=== PATIENT | female | born 1950 | race Caucasian/White ===

== ENCOUNTER → 2021-07-31 10:13 | Outpatient (BNVA) | payer OTHER, SELFPAY | PROVIDERS: PCP Internal Medicine; Visit Provider Internal Medicine | DX: J44.9 Chronic obstructive pulmonary disease, unspecified (principal); R68.89 Other general symptoms and signs; Z87.891 Personal history of nicotine dependence | CPT/HCPCS: 99202 ==

== ENCOUNTER 2021-09-27 13:19 | Outpatient (REF) | payer OTHER, SELFPAY ==
--- NOTE | ~2021-09-27 | CT_ITS ---
EXAMINATION: CT CHEST SCREENING CLINICAL INFORMATION: Former smoker. Quit 5 years ago. COMPARISON: None. TECHNIQUE: Multidetector volumetric CT imaging of the chest is performed without contrast using low dose technique. Additional 2D coronal and sagittal reformatted images and axial 3D maximum intensity projection (MIP) images are generated on the CT workstation. This CT examination was performed using dose optimization techniques as appropriate, variously including the following: *Automated exposure control *Adjustment of mA and/or kV according to patient size (this includes techniques or standardized protocols for targeted exams where dose is matched to indication/reason for exam; i.e. extremities or head) *Use of iterative reconstruction technique DLP: 293 mGy-cm FINDINGS: LUNGS: There is evidence of emphysema. There is a 2 mm right upper lobe posterior peripheral nodule axial image 131 series 5. There is linear scarring seen in the posterior segment of the right upper lobe and superior segment of the right lower lobe. There are several clustered peripheral posterior superior segment right lower lobe nodules measuring 4 mm axial image 248, 253 series 5. There are small peripheral or subpleural 2 mm nodules along the right minor fissure axial image 251 series 5. There is a 5 mm right lower lobe nodule axial image 386 series 6. There is a 5 mm left lower lobe nodule axial image 444 series 5. There is a 5 mm lingular nodule axial image 284 series 5 and scarring or subsegmental atelectasis seen in the inferior segment of the lingula. No endobronchial or endotracheal lesion. MEDIASTINUM: There is mild coronary artery calcification. There is atherosclerotic disease with calcification of the thoracic aorta. There is wall thickening of the mid and distal thoracic esophagus. The mediastinum is normal. PLEURA: There is no pleural effusion. No pleural mass or thickening. There is a small right posterior diaphragmatic hernia containing fat. AXILLA: No lymphadenopathy. UPPER ABDOMEN: There is a 1.5 cm low-attenuation lesion in the left kidney probably representing a cyst. OSSEOUS STRUCTURES: There are degenerative changes of the spine. CT/CT lung screening IMPRESSION: Emphysema. Small pulmonary nodules, largest measuring 5 mm. Wall thickening of the mid and distal thoracic esophagus. Follow-up barium swallow/upper GI or endoscopy should be considered. Mild coronary artery calcification and atherosclerotic disease. ASSESSMENT: Lung-RADS category 2S: Benign S for wall thickening of the esophagus. RECOMMENDATION: Annual low-dose chest CT follow-up recommended. Follow-up barium swallow/upper GI or endoscopy should be considered.
== END 2021-09-27 13:20 | disposition home or self-care (01) ==
LOC: HO.CT 13:19
PROVIDERS: PCP Internal Medicine; Visit Provider Physician Assistant Medical
DX: Z12.2 Encounter for screening for malignant neoplasm of respiratory organs (principal); F17.210 Nicotine dependence, cigarettes, uncomplicated
CPT/HCPCS: 71271; G0296

== ENCOUNTER 2021-11-23 09:45 | Outpatient (REF) | payer OTHER, SELFPAY ==
[2021-11-23 11:25] LABS: MANUAL DIFF FLAG NO
[2021-11-23 11:50] LABS: Basophils Absolute Auto 0.1 X10*3/uL (0.0-0.2); Basophils Percent Auto 0.7 % (0-2); Eosinophils Absolute Auto 0.7 X10*3/uL (0.0-0.4); Eosinophils Percent Auto 6.5 % (0-4); Hematocrit 42.1 % (37.0-47.0); Hemoglobin 13.6 g/dl (12.0-16.0); Imm Gran Abs Auto 0.02 X10*3/uL (0.00-0.03); Imm Gran Pct Auto 0.2 % (0.0-0.4); Lymphocytes Absolute Auto 2.1 X10*3/uL (1.2-4.9); Lymphocytes Percent Auto 20.2 % (20-40); Mean Corpuscular HGB Conc 32.3 g/dl (31.0-35.0); Mean Corpuscular Hemoglobin 30.4 pg (27.0-33.0); Mean Platelet Volume 11.6 fL (9.4-12.3); Monocytes Absolute Auto 0.6 X10*3/uL (0.1-1.2); Monocytes Percent Auto 5.5 % (2-11); Neutrophils Absolute Auto 6.9 x10*3/uL (2.0-8.3); Neutrophils Percent Auto 66.9 % (45-73); Platelet Count 228 X10*3/uL (160-400); Red Blood Count 4.48 X10*6/uL (4.20-5.50); Red Cell Distribution Width 12.7 % (11.0-16.0); White Blood Count 10.3 X10*3/uL (4.8-10.8)
[2021-11-23 11:58] LABS: Alanine Aminotransferase 18 U/L (0-31); Albumin Level 4.2 g/dL (3.5-5.0); Alkaline Phosphatase 118 U/L (39-117); Anion Gap 13 (12-20); Aspartate Amino Transferase 21 U/L (5-31); Bilirubin Total 1.2 mg/dL (0.0-1.0); Blood Urea Nitrogen 21 mg/dL (9-16); Calcium 9.4 mg/dL (8.4-10.2); Carbon Dioxide 30 mmol/L (22-29); Chloride 104 mmol/L (96-108); Cholesterol 181 mg/dL; Estimated Glomerular Filt Rate > 60; Glucose Fasting 118 mg/dL (60-99); HDL Cholesterol 40 mg/dL; LDL Cholesterol Calculated 101 mg/dl; Potassium 4.1 mmol/L (3.3-5.1); Sodium 143 mmol/L (135-145); Total Protein 7.1 g/dL (6.5-8.0); Triglycerides 203 mg/dL
[2021-11-23 12:20] LABS: TSH reflex Free T4 1.17 uIU/mL (0.32-4.0)
[2021-11-25 10:23] LABS: Vitamin B12 1396 pg/mL (200-900)
[2021-11-28 12:31] LABS: Vitamin D 25-OH, D2 <4 ng/mL; Vitamin D 25-OH, D3 48 ng/mL; Vitamin D 25-OH, Total 48 ng/mL (30-100)
== END 2021-11-23 09:46 | disposition home or self-care (01) ==
LOC: HO.HMGCLDS 09:45
PROVIDERS: PCP Internal Medicine; Visit Provider Internal Medicine
DX: I10 Essential (primary) hypertension (principal); J44.9 Chronic obstructive pulmonary disease, unspecified; R09.82 Postnasal drip; Z91.09 Other allergy status, other than to drugs and biological substances; Z76.89 Persons encountering health services in other specified circumstances
CPT/HCPCS: 36415; 80053; 80061; 82306; 82607; 84443; 85025

== ENCOUNTER 2021-12-05 08:55 | Outpatient (REF) | payer OTHER, SELFPAY ==
--- NOTE | 2021-12-05 11:22 | PFT_ITS ---
Forced vital capacity 57%, FEV1 23%, FEV1/FVC ratio is 31, [id number] 8% and MVV 19%. Post bronchodilator therapy, there is no change. Total lung capacity 98% and residual volume 150%, indicating some air trapping. Diffusion capacity is 19%. CONCLUSION: Very very severe obstructive airway disorder with evidence of air trapping. No response to bronchodilator therapy. MD MELISSA Hannah/MODL / [id number]
== END 2021-12-05 08:56 | disposition home or self-care (01) ==
LOC: HO.RESP 08:55
PROVIDERS: PCP Internal Medicine; Visit Provider Internal Medicine
DX: J44.9 Chronic obstructive pulmonary disease, unspecified (principal); R91.8 Other nonspecific abnormal finding of lung field; Z79.899 Other long term (current) drug therapy; Z87.891 Personal history of nicotine dependence; R68.89 Other general symptoms and signs
CPT/HCPCS: 99212

== ENCOUNTER 2022-02-04 09:50 | Outpatient (REF) | payer OTHER, SELFPAY ==
[2022-02-04 11:50] LABS: Estimated Average Glucose 108 mg/dL; Hemoglobin A1c % 5.4 %
[2022-02-04 12:12] LABS: Alanine Aminotransferase 15 U/L (0-31); Alkaline Phosphatase 98 U/L (39-117); Anion Gap 15 (12-20); Aspartate Amino Transferase 19 U/L (5-31); Bilirubin Total 0.9 mg/dL (0.0-1.0); Blood Urea Nitrogen 21 mg/dL (9-16); Calcium 9.4 mg/dL (8.4-10.2); Carbon Dioxide 28 mmol/L (22-29); Chloride 103 mmol/L (96-108); Estimated Glomerular Filt Rate > 60; Glucose Random 108 mg/dL (60-115); Sodium 142 mmol/L (135-145); Total Protein 6.8 g/dL (6.5-8.0)
== END 2022-02-04 09:51 | disposition home or self-care (01) ==
LOC: HO.HMGCLDS 09:50
PROVIDERS: PCP Internal Medicine; Visit Provider Internal Medicine
DX: R73.01 Impaired fasting glucose (principal); R79.89 Other specified abnormal findings of blood chemistry
CPT/HCPCS: 36415; 80053; 83036

== ENCOUNTER → 2022-04-17 09:46 | Outpatient (BNVA) | payer OTHER, SELFPAY | PROVIDERS: PCP Internal Medicine; Visit Provider Internal Medicine | DX: J44.9 Chronic obstructive pulmonary disease, unspecified (principal); R91.8 Other nonspecific abnormal finding of lung field; Z87.891 Personal history of nicotine dependence | CPT/HCPCS: 99212 ==

== ENCOUNTER 2022-09-18 09:02 | Outpatient (REF) | payer OTHER, SELFPAY ==
[2022-09-18 11:33] LABS: MANUAL DIFF FLAG NO
[2022-09-18 11:46] LABS: Basophils Absolute Auto 0.1 X10*3/uL (0.0-0.2); Basophils Percent Auto 0.7 % (0-2); Eosinophils Absolute Auto 0.2 X10*3/uL (0.0-0.4); Eosinophils Percent Auto 1.9 % (0-4); Hematocrit 41.5 % (37.0-47.0); Hemoglobin 13.4 g/dl (12.0-16.0); Imm Gran Abs Auto 0.12 X10*3/uL (0.00-0.03); Imm Gran Pct Auto 1.1 % (0.0-0.4); Lymphocytes Absolute Auto 1.7 X10*3/uL (1.2-4.9); Lymphocytes Percent Auto 16.6 % (20-40); Mean Corpuscular HGB Conc 32.3 g/dl (31.0-35.0); Mean Corpuscular Hemoglobin 31.5 pg (27.0-33.0); Mean Corpuscular Volume 97.4 fL (80.0-98.0); Mean Platelet Volume 11.5 fL (9.4-12.3); Monocytes Absolute Auto 0.5 X10*3/uL (0.1-1.2); Neutrophils Absolute Auto 7.8 x10*3/uL (2.0-8.3); Neutrophils Percent Auto 74.7 % (45-73); Platelet Count 234 X10*3/uL (160-400); Red Blood Count 4.26 X10*6/uL (4.20-5.50); Red Cell Distribution Width 12.9 % (11.0-16.0); White Blood Count 10.5 X10*3/uL (4.8-10.8)
[2022-09-18 12:17] LABS: Alanine Aminotransferase 21 U/L (0-31); Alkaline Phosphatase 107 U/L (39-117); Anion Gap 14 (12-20); Aspartate Amino Transferase 24 U/L (5-31); Bilirubin Total 1.1 mg/dL (0.0-1.0); Blood Urea Nitrogen 17 mg/dL (9-16); Calcium 9.9 mg/dL (8.4-10.2); Carbon Dioxide 30 mmol/L (22-29); Chloride 105 mmol/L (96-108); Cholesterol 188 mg/dL; Estimated Glomerular Filt Rate > 60; Glucose Fasting 112 mg/dL (60-99); Glucose Random 110 mg/dL (60-115); HDL Cholesterol 41 mg/dL; LDL Cholesterol Calculated 111 mg/dl; Potassium 4.3 mmol/L (3.3-5.1); Sodium 145 mmol/L (135-145); Total Protein 6.8 g/dL (6.5-8.0); Triglycerides 184 mg/dL
== END 2022-09-18 09:03 | disposition home or self-care (01) ==
LOC: HO.HMGCLDS 09:02
PROVIDERS: PCP Internal Medicine; Visit Provider Internal Medicine
DX: I10 Essential (primary) hypertension (principal); R73.01 Impaired fasting glucose; R79.89 Other specified abnormal findings of blood chemistry
CPT/HCPCS: 36415; 80053; 80061; 85025

== ENCOUNTER 2022-10-23 10:10 | Outpatient (REF) | payer OTHER, SELFPAY ==
--- NOTE | ~2022-10-23 | CT_ITS ---
EXAMINATION: CT CHEST SCREENING CLINICAL INFORMATION: Personal history of nicotine dependence. COMPARISON: CT chest 09/27/2021. TECHNIQUE: Multidetector volumetric CT imaging of the chest is performed without contrast using low dose technique. Additional 2D coronal and sagittal reformatted images and axial 3D maximum intensity projection (MIP) images are generated on the CT workstation. This CT examination was performed using dose optimization techniques as appropriate, variously including the following: *Automated exposure control *Adjustment of mA and/or kV according to patient size (this includes techniques or standardized protocols for targeted exams where dose is matched to indication/reason for exam; i.e. extremities or head) *Use of iterative reconstruction technique DLP: 52 mGy-cm FINDINGS: LUNGS: There is centrilobular emphysema without acute consolidation. There are new right upper lobe pulmonary nodules measuring 5 mm right upper lobe image 132/6 and image 140/6. 2 mm nodule seen previously subpleural location right upper lobe is not seen at this time. Focal scarring is seen right upper lobe posterior segment adjacent to major fissure. Small clustered 4 mm nodules in the superior segment of right lower lobe axial image 200/6 and 201/6 appear stable. 2 mm clustered nodules along the right minor fissure are stable on axial image 213/6 and 214/6. 4 mm nodule left lower lobe axial image 188/6 appears more obvious compared to previous study. There is new linear atelectasis. 3 mm nodules right middle lobe axial image 270/6 and a 2 mm nodule right middle lobe axial image 271/6 is stable. No lingular nodules seen at this time. Left lower lobe 5 mm nodule axial image 409/6 is stable. MEDIASTINUM: Thyroid lobes are symmetric and normal. The central trachea and the bronchi are widely patent. Heart size and the great vessels are normal caliber. Small shotty lymph nodes are seen in the precarinal space. No pericardial effusion seen. There is mild thickening of distal esophageal wall similar to previous study. CORONARY ARTERY CALCIFICATION: Mild coronary artery calcifications are present. PLEURA: There is no pleural effusion. No pleural mass or lymphadenopathy. AXILLA: Unremarkable. UPPER ABDOMEN: Unremarkable. OSSEOUS STRUCTURES: Unremarkable. CT/CT lung screening IMPRESSION: Majority pulmonary nodules are stable. There are some nodules that have resolved and are not visualized and some new nodules in the right middle lobe and right upper lobe. ASSESSMENT: Lung-RADS category 2S RECOMMENDATION: Low-dose annual CT chest.
== END 2022-10-23 10:11 | disposition home or self-care (01) ==
LOC: HO.CT 10:10
PROVIDERS: PCP Internal Medicine; Visit Provider Physician Assistant Medical
DX: Z12.2 Encounter for screening for malignant neoplasm of respiratory organs (principal); Z87.891 Personal history of nicotine dependence
CPT/HCPCS: 71271

== ENCOUNTER → 2022-11-20 09:50 | Outpatient (REF) | payer OTHER, SELFPAY ==
--- NOTE | 2022-11-20 09:52 | CA_ITS ---
Transthoracic Echocardiogram Patient (Last, First, Middle): Charissa Baptiste, Gender: Female Date of : 1950 Age: 72 Procedure Date: 11/20/2022 Procedure Type: Transthoracic Echocardiogram Location: OP Height: 160.02 cm Weight: 70.31 kg BSA: 1.74 m2 Heart Rate: bpm BP: 144 / 72 mmHg Frame Sample And Pattern Supervisor: TO Referring MD: Keny Alves MD Lithographic Photographer Apprentice: Pawel Fuentes MD Symptoms: R06.02 - Shortness of breath Study Quality: Technically Difficult, contrast ECG Rhythm: Sinus Conclusions: - 1. Technically limited study despite use of contrast agent 2. Normal LV systolic function with LVEF of 55-60% with suggestion of underlying regional wall motion abnormality consistent with coronary artery disease 3. Mild mitral regurgitation 4. No gross pericardial effusion Findings Procedure Information Contrast agent, definity, is being given per protocol with complications as noted. The patient experienced back pain from contrast. Left Ventricle Normal left ventricular size, thickness, and systolic function. The visually estimated ejection fraction is between 55-60%. Spectral Doppler is indicative of an impaired relaxation filling pattern. There is moderate septal asymmetric hypertrophy. Wall Motion Rest Echo Findings The basal inferior and basal inferoseptal segments are akinetic. The mid inferoseptal segment is dyskinetic. All other scored wall segments showed normal motion. Right Ventricle The right ventricle was not well visualized. There is normal right ventricular systolic function. Atria The left atrium was not well visualized. There is no evidence of interatrial shunt. The right atrium was not well visualized. Aortic Valve The aortic valve was not well visualized. There is no aortic valve stenosis. There is no aortic valve regurgitation. Mitral Valve There is mild anterior mitral leaflet thickening. There is mild mitral annular calcification. There is mild mitral valve regurgitation. There is no mitral valve stenosis. Pulmonic Valve The pulmonic valve was not well visualized. Tricuspid Valve The tricuspid valve was not well visualized. Tricuspid regurgitation envelope is inadequate for calculation of right ventricular systolic pressure. Normal right atrial pressure. Great Vessels All visible segments of the aorta are normal in size. The pulmonary artery was not well visualized. Venous The inferior vena cava is normal in size and collapses greater than 50% with inspiration. Pericardium/Pleural There is no evidence of pericardial effusion. Prior Study Comparison No prior study available for comparison. Measurements 2D Linear Measurements IVSd: 1.59 0.6-0.9/0.6-1.0 cm LVIDd: 3.56 3.9-5.3/4.2-5.9 cm LVIDd Index: 2.05 2.4-3.2/2.2-3.1 cm/m2 LVIDs: 2.10 2.0-3.6 cm LVPWd: 0.98 0.7-1.1 cm LA Diam: 3.00 2.7-3.8/3.0-4.0 cm LAIDs Index: 1.72 1.5-2.3 cm/m2 LV Mass: 192.52 67-162/88-224 g LV Mass Index: 110.64 43-95/49-115 g/m2 LVOT Diam: 1.90 3.0+(-)1.3 cm Mitral Valve MV VTI: 0.38 MV Pk Demarcus: 1.03 MV Mn Demarcus: 0.68 MV Pk Grad: 4.00 MV Mn Grad: 2.00 MV Pk E: 0.73 MV PK A: 0.87 MV Decel Time: 215.00 E/A: 0.80 E'Lateral: 6.20 E'Medial: 5.87 E/E' Med: 12.50 E/E' Lat: 11.80 PHT: 63.00 MVA PHT: 3.49 MVA Continuity: 1.71 Decel Mono: 3.40 Aortic Valve AoV Pk Demarcus: 1.38 AoV Mn Demarcus: 0.92 AoV VTI: 0.31 AoV Pk Grad: 8.00 Aov Mn Grad: 4.00 KO Cont.VTI: 2.09 LVOT LVOT Pk Demarcus: 0.96 LVOT Mn Demarcus: 0.64 LVOT VTI: 0.23 LVOT Pk Grad: 4.00 LVOT Mn Grad: 2.00 LVOT Diam: 1.90 LVOT Area: 2.84 Diastolic Function MV Pk E: 0.73 MV Pk A: 0.87 E/A: 0.80 E'Medial: 5.87 E/E' Med: 12.50 E' Laterial: 6.20 E/E' Lat: 11.80 Right Ventricle TAPSE (mm): 2.11 TVS' Demarcus: 8.59 Tricuspid Valve TR Pk Demarcus: 2.15 TR Pk Grad: 18.00 Great Vessels Aorta Sinus of Valsalva: 2.83 2.0-3.[address] [place]: 2.23 1.7-3.4 cm Ao Asc: 2.70 2.1-3.4 cm Updated in Other Vendor System with Status of Final Pawel Fuentes MD electronically signed on 11/20/2022 4:37:21 PM with status of Final
--- NOTE | 2022-11-20 09:52 | ECG_ITS ---
Test Reason : SOB Blood Pressure : / mmHG Vent. Rate : 069 BPM Atrial Rate : 069 BPM P-R Int : 140 ms QRS Dur : 080 ms QT Int : 356 ms P-R-T Axes : 072 079 078 degrees QTc Int : 381 ms Normal sinus rhythm with sinus arrhythmia Nonspecific T wave abnormality Abnormal ECG No previous ECGs available Referred By: Keny Alves Electronically Signed By:Lui Bailon
== END ==
LOC: HO.CARD 09:50
PROVIDERS: PCP Internal Medicine; Visit Provider Internal Medicine
DX: R06.02 Shortness of breath (principal); I10 Essential (primary) hypertension
CPT/HCPCS: 93005; 93306; Q9957

== ENCOUNTER 2022-12-26 07:28 | Outpatient (AMB) | payer OTHER, SELFPAY ==
--- NOTE | 2022-12-26 07:26 | MHC.PC.OV ---
Intake Visit Reasons: discuss Echo report [id number] Allergies perflutren Adverse Reaction (Verified 12/26/22 07:27) Back Pain Medication List - Last Reconciled 12/26/22 by Keny Alves MD albuterol sulfate 90 mcg/actuation 2 puffs PO Q4-6H PRN atenolol 75 mg (1.5 x 50 mg) PO DAILY 90 days cholecalciferol (vitamin D3) 50 mcg PO DAILY qlanoxaqvgq-ledyqxnud-mkrnerld 100-62.5-25 mcg (Trelegy Ellipta) 1 inh inhalation DAILY 30 days ibuprofen mg PO rceiidti-bmm-qjhj-FA-lutein 8 mg iron-400 mcg-300 mcg (Centrum Silver Women) 1 tab PO DAILY Tobacco use date assessed: 12/26/22 Fall risk assessment: No Falls in past year Last assessed Fall Risk: 12/26/22 Dental Screening Dental Screen Date: 12/26/22 Did you have a dental visit in the last 12 months?: Yes Did you have a dental problem in the last 6 months where you did not have access to dental care?: Yes Was dental information given to patient?: Patient has dentist HPI discuss Echo report [phone] HPI Details Patient is 72-year-old female this is a tele medicine visit to go over her testing results 10/23/22 IMPRESSION: Majority pulmonary nodules are stable. There are some nodules that have resolved and are not visualized and some new nodules in the right middle lobe and right upper lobe. 11/20/22 Conclusions: - 1. Technically limited study despite use of contrast agent 2. Normal LV systolic function with LVEF of 55-60% with suggestion of underlying regional wall motion abnormality consistent with coronary artery disease 3. Mild mitral regurgitation 4. No gross pericardial effusion Explained the CT scan and echocardiogram reports to the patient she has appointment with cost analyst 13 of February and appointment with paralegal specialist on January 22 that she is already seeing At this time patient have no complain she is taking her medication regularly having no side effects. [facility] Medical History COPD, severe Esophageal thickening Hypertension, essential Personal history of nicotine dependence Pulmonary nodules/lesions, multiple Worsening functional endurance Family History Mother COPD (chronic obstructive pulmonary disease) Other Substance use disorder Social History Housing: Apartment Alcohol intake: current Alcohol intake frequency: does not drink Patient Tobacco Use Status: Former Tobacco user (5 years ago ) Quit Date: 2014 Tobacco use type: Cigarette Years Smoked: (onset 14yo, 1ppd x 50yrs, 50pyh - quit ~2014) e-Cigarette/Vaping Use: Never Used service: No Current occupational status: retired Cognitive needs: No Hearing needs: No Vision needs: Yes Questionnaire PHQ-9 Over the last 2 weeks, how often have you been bothered by any of the following problems? 1. Little interest or pleasure in doing things: not at all 2. Feeling down, depressed, or hopeless: not at all 3. Trouble falling or staying asleep, or sleeping too much: not at all 4. Feeling tired or having little energy: not at all 5. Poor appetite or overeating: not at all 6. Feeling bad about yourself - or that you are a failure or have let yourself or your family down: not at all 7. Trouble concentrating on things, such as reading the newspaper or watching television: not at all 8. Moving or speaking so slowly that other people could have noticed. Or the opposite - being so fidgety or restless that you have been moving around a lot more than usual: not at all 9. Thoughts that you would be better off or of hurting yourself in some way: not at all Total score: 0 Source: Developed by Drs. Dereje Alvarado, Tania Baptiste, Junior Espinoza and colleagues, with an educational susie from [employer]. Thrive Questionnaire Date Thrive assessed: 12/26/22 I am a: Patient What is your living situation today?: I have a steady place to live Within the past 12 months, did the food you bought not last and you didn't have the money to get more?: Never true Within the past 12 months, did you worry whether your food would run out before you got money to buy more?: Never true Do you have trouble paying for medicines?: No Do you have trouble getting transportation to medical appointments?: No Do you have trouble paying your heating and electricity bill?: No Do you have trouble taking care of your child, family member or friend?: No Do you have trouble with day-to-day activities such as bathing, preparing meals, shopping, managing finances, etc.?: No Are you currently unemployed and looking for a job?: No Are you interested in more education?: No AUDIT C Alcohol Use Questionnaire (AUDIT-C) 1. How often do you have a drink containing alcohol?: Never Total Score: 0 DONALD-7 AMB Questionnaire DONALD-7 Date DONALD - 7 assessed: 12/26/22 Feeling nervous, anxious, or on edge: 0 = Not at all Not being able to stop or control worryin = Not at all Worrying too much about different things: 0 = Not at all Trouble relaxin = Not at all Being so restless that it is hard to sit still: 0 = Not at all Becoming easily annoyed or irritable: 0 = Not at all Feeling afraid as if something awful might happen: 0 = Not at all Total DONALD-7 score (0-4 normal; 5-9 mild; 10-14 moderate; 15-21 severe): 0 Source: Developed by Drs. Dereje Alvarado, Tania Baptiste, Junior Espinoza and colleagues, with an educational susie from [employer]. Review of Systems Const Denies chills, Denies fever(s) and Denies headache(s) Eyes Denies blurry vision ENT Denies headache(s), Denies nasal discharge, Denies nasal obstruction, Denies odynophagia and Denies sinus pain Card Denies chest pain at rest and Denies chest pain with activity Resp Denies cough and Denies hemoptysis GI Denies diarrhea, Denies odynophagia, Denies vomiting and Denies hematemesis Reports as per HPI Musc Denies abnormal gait Skin/Breast Reports as per HPI Neuro Denies Neuro-related abnormal movements, Denies Abnormal speech present, Denies abnormal gait, Denies headache(s) and Denies Sensory deficit (Neuro) Psych Denies mood swings and Denies paranoia Endo Reports as per HPI Rian/Lymph Reports as per HPI Aller/Immun Reports as per HPI Physical exam (Primary Care) Tobacco/Smoking Status: Tobacco use Status Tobacco use date assessed 07/14/23 07/14/23 07:28 Patient Tobacco Use Status Former Tobacco user (5 years 12/26/22 07:28 ago ) Tobacco use type Cigarette 12/26/22 07:28 e-Cigarette/Vaping Use Never Used 12/26/22 07:28 PHQ-9: PHQ-9 Score PHQ-9: Total score 0 12/26/22 07:30 Thrive Assessment: Date of Thrive Assessment Date Thrive assessed 12/26/22 12/26/22 07:30 Neuro Speech: No Abnormal speech present Sensory Exam: No Sensory deficit (Neuro) Telehealth Telehealth Location of provider rendering services: practice address Location of patient: address on file Patient Identification confirmed using: Name, : Yes Telehealth method: voice only Patient verbally consented to treatment: Yes Patient verbally consented to billing insurance company: Yes Patient informed of any privacy concerns related to visit: Yes Minutes spent on Phone/Video with Pt.: 14 Assessment and Plan Assessment & Plan (1) CAD (coronary artery disease): Code(s): I25.10 - Atherosclerotic heart disease of [place] coronary artery without angina pectoris (2) COPD, severe: Comment: COPD IS ACTUALLY VERY SEVERE, FORTUNATELY SHE IS STAYING VERY STABLE. TX: TRELEGY ELLIPTA 1 INHALATION DAILY ALBUTEROL HFA 2 PUFFS Q 4-6 HOURS ONLY P.R.N. PATIENT IS UP TO DATE WITH HER VACCINATIONS. Code(s): J44.9 - Chronic obstructive pulmonary disease, unspecified (3) Hypertension, essential: Code(s): I10 - Essential (primary) hypertension Plan Patient is 72-year-old female this is a tele medicine visit to go over her testing results 10/23/22 IMPRESSION: Majority pulmonary nodules are stable. There are some nodules that have resolved and are not visualized and some new nodules in the right middle lobe and right upper lobe. 11/20/22 Conclusions: - 1. Technically limited study despite use of contrast agent 2. Normal LV systolic function with LVEF of 55-60% with suggestion of underlying regional wall motion abnormality consistent with coronary artery disease 3. Mild mitral regurgitation 4. No gross pericardial effusion Explained the CT scan and echocardiogram reports to the patient she has appointment with cost analyst 13 of February and appointment with paralegal specialist on January 22 that she is already seeing At this time patient have no complain she is taking her medication regularly having no side effects. Coding Level of Care Code Tele Est Pt Level 3 (08501) Diagnoses CAD (coronary artery disease) I25.10 COPD, severe J44.9 Hypertension, essential I10
== END 2022-12-26 08:41 | disposition home or self-care (01) ==
PROVIDERS: PCP Internal Medicine; Visit Provider Internal Medicine
DX: I25.10 Atherosclerotic heart disease of native coronary artery without angina pectoris (principal); J44.9 Chronic obstructive pulmonary disease, unspecified; I10 Essential (primary) hypertension
CPT/HCPCS: 99213

== ENCOUNTER 2023-01-22 10:20 | Outpatient (AMB) | payer OTHER, SELFPAY ==
--- NOTE | 2023-01-22 10:22 | MHC.OFFVIS ---
Intake Vital Signs 01/22/23 10:23 Height 5 ft 3 in Weight 159 lb 13.362 oz BMI 28.3 BP 124/68 Blood Pressure Location Lt brachial Position Sitting Pulse 75 Pulse Source Pulse Oximeter Pulse Oximetry (%) 94 Oxygen Delivery Method Room Air Intake Visit Reasons: copd Intake Note: Pt presents today for a f/u. She reports having shortness of breath on exertion. Oxygen levels were at 86 but kaity up to 94 after sitting for a while and catching her breath. She is also looking to get some prescriptions refilled. Content Creation Manager Required: No Allergies perflutren Adverse Reaction (Verified 01/22/23 10:55) Back Pain Medication List - Last Reconciled 01/22/23 by Ed Barfield MD albuterol sulfate 90 mcg/actuation 2 puffs PO Q4-6H PRN atenolol 75 mg (1.5 x 50 mg) PO DAILY 90 days cholecalciferol (vitamin D3) 50 mcg PO DAILY aaumykenclp-ivqwqlchz-ubhdrvii 100-62.5-25 mcg (Trelegy Ellipta) 1 inh inhalation DAILY 30 days ibuprofen mg PO rkxkjtaz-phj-iwnm-FA-vit K-lut 8 mg iron-400 mcg-50 mcg (Centrum Silver Women) 1 tab PO DAILY Do you need a note to return to daycare/school/sports/work: No HPI copd HPI Details THIS 72 YEARS OLD VERY PLEASANT FEMALE IS A CASE OF SEVERE OBSTRUCTIVE AIRWAY DISORDER. SHE HAS PAST HISTORY OF SMOKING. PATIENT FEELING MUCH BETTER SINCE SHE IS ON TRELEGY 1 INHALATION DAILY AND ALBUTEROL WHICH SHE USES ONLY ONCE IN A WHILE. SHE DOES GET SHORT OF BREATH WHEN SHE WALKS ON THE LEVEL GROUND, IN A HURRY, OR IF SHE CLIMBS 1 FLIGHT OF STAIRS. SHE CLAIMS THAT FOR THE LAST 1 YEAR SHE DID NOT EVEN HAVE ANY SINUS INFECTION WHICH SHE USED TO GET REGULARLY BEFORE. SHE CAN WALK MORE AND SHE CAN DO HER HOUSEHOLD WORK WITHOUT ANY DISTRESS. SHE DOES GET ANNUAL LUNG SCAN , LAST 1 WAS THIS YEAR IN OCTOBER WHICH SHOWS MULTIPLE PULMONARY NODULES BUT VERY STABLE. [facility] Medical History COPD, severe Esophageal thickening Hypertension, essential Personal history of nicotine dependence Pulmonary nodules/lesions, multiple Worsening functional endurance Family History Mother COPD (chronic obstructive pulmonary disease) Other Substance use disorder Social History Housing: Apartment Alcohol intake: current Alcohol intake frequency: does not drink Patient Tobacco Use Status: Former Tobacco user (5 years ago ) Quit Date: 2014 Tobacco use type: Cigarette Years Smoked: (onset 14yo, 1ppd x 50yrs, 50pyh - quit ~2014) e-Cigarette/Vaping Use: Never Used service: No Current occupational status: retired Cognitive needs: No Hearing needs: No Vision needs: Yes Review of Systems Const All systems reviewed & are unremarkable except as noted in HPI and below Eyes Reports no additional complaints ENT Reports no additional complaints Card Denies chest pain, Denies irregular heart rhythm, Reports leg edema and Reports dyspnea on exertion Resp Reports as per HPI and Reports dyspnea on exertion GI Reports no additional complaints Reports no additional complaints Musc Reports muscle weakness (GENERAL BODY WEAKNESS AND POOR ENDURANCE) Skin/Breast Reports system reviewed and no additional complaints, except as documented Neuro Reports no additional complaints Psych Reports anxiety (MILD) Endo Reports no additional complaints Rian/Lymph Reports no additional complaints Aller/Immun Reports no additional complaints Physical Exam Vital Signs: Last Vital Signs Pulse 75 01/22/23 10:23 BP 124/68 01/22/23 10:23 Pulse Ox 94 01/22/23 10:23 Oxygen Delivery Method Room Air 01/22/23 10:23 BMI result Body Mass Index 28.3 Const General: comfortable (BUT OBVIOUSLY SHORT OF BREATH ON WALKING EVEN IN THE EXAM ROOM), no acute distress, alert and awake Orientation/consciousness: patient oriented x3 HEENT Head: Yes normal to inspection General nose exam: No nasal polyps present and No nasal discharge present Face and sinus: Yes sinuses nontender Mouth: oropharynx normal Throat: Yes posterior oropharynx normal Eyes General: appearance normal, both eyes and all related structures Neck Neck: Yes normal visual inspection, Yes no lymphadenopathy, Yes trachea midline and Yes no JVD Thyroid: Thyroid normal Chest Chest palpation & inspection: normal inspection of the chest, normal palpation of entire chest wall and no tenderness Resp Other: PERCUSSION NOTE RESONANT. BREATH SOUNDS ARE VERY DISTANT WITH PROLONGED EXPIRATORY PHASE. NO AUDIBLE WHEEZES CREPS OR RHONCHI. Cardio Palpation: normal PMI Rate: regular rate Rhythm: regular rhythm Heart sounds: no gallops and no murmurs GI Palpation (GI): Soft to palpation, nontender, No hepatosplenomegaly present and no masses Auscultation: normal bowel sounds Back/Spine/Pelvis Thoracic/Lumbar Spine: thoracic and lumbar spine normal to inspection Skin General skin exam: no rashes or lesions noted Neuro General: patient oriented x3 and no focal motor deficits Cranial nerves: Yes CN's II-XII intact bilaterally Extrem General: Yes normal to inspection, Yes no clubbing, cyanosis or edema and Yes no calf tenderness Psych Appearance: grossly normal Speech and movement: Normal speech and movement present Results Reviewed Results Reviewed: I REVIEWED THE RESULTS OF HER LOW-DOSE CT SCAN, IN OCTOBER OF THIS YEAR AND EXPLAINED TO HER. Assessment & Plan Assessment & Plan (1) COPD, severe: Comment: COPD IS ACTUALLY VERY SEVERE, FORTUNATELY SHE IS STAYING VERY STABLE. TX: TRELEGY ELLIPTA 1 INHALATION DAILY ALBUTEROL HFA 2 PUFFS Q 4-6 HOURS ONLY P.R.N. SCRIPTS ARE RENEWED. PATIENT IS UP TO DATE WITH HER VACCINATIONS. Code(s): J44.9 - Chronic obstructive pulmonary disease, unspecified (2) Personal history of nicotine dependence: Comment: (Former smoker, onset 14, 1ppd x 50yrs, quit ~2014) Code(s): Z87.891 - Personal history of nicotine dependence (3) Pulmonary nodules/lesions, multiple: Comment: Patient had LDCT scan in September, has small bilateral pulmonary nodules, benign, stage II. She will be getting Annual low-dose CT scan , for lung screening. Code(s): R91.8 - Other nonspecific abnormal finding of lung field Coding Level of Care Code Est Pt Level 3 (90511) Diagnoses COPD, severe J44.9 Personal history of nicotine dependence Z87.891 Pulmonary nodules/lesions, multiple R91.8
[2023-01-22 10:23] VITALS: BP 124/68; PULSE 75; O2SAT 94; BMI 28.3
== END 2023-01-22 10:53 | disposition home or self-care (01) ==
PROVIDERS: PCP Internal Medicine; Visit Provider Internal Medicine
DX: J44.9 Chronic obstructive pulmonary disease, unspecified (principal); Z87.891 Personal history of nicotine dependence; R91.8 Other nonspecific abnormal finding of lung field
CPT/HCPCS: 99213

== ENCOUNTER → 2023-01-22 10:20 | Outpatient (BNVA) | payer OTHER, SELFPAY | PROVIDERS: PCP Internal Medicine; Visit Provider Internal Medicine | DX: J44.9 Chronic obstructive pulmonary disease, unspecified (principal); R91.8 Other nonspecific abnormal finding of lung field; Z87.891 Personal history of nicotine dependence | CPT/HCPCS: 99212 ==

== ENCOUNTER 2023-02-11 10:27 | Outpatient (AMB) | payer OTHER, SELFPAY ==
--- NOTE | 2023-02-11 10:28 | MHC.PC.OV ---
Vital Signs 02/11/23 10:31 Height 5 ft 3 in Weight 155 lb BMI 27.5 BP 130/84 Blood Pressure Location Lt brachial Position Sitting Pulse 78 Pulse Source Pulse Oximeter Pulse Oximetry (%) 94 Oxygen Delivery Method Room Air Intake Visit Reasons: Physical exam - Due for colorectal cancer screen Allergies perflutren Adverse Reaction (Verified 02/11/23 10:31) Back Pain Medication List - Last Reconciled 02/11/23 by Keny Alves MD albuterol sulfate 90 mcg/actuation 2 puffs PO Q4-6H PRN 30 days atenolol 75 mg (1.5 x 50 mg) PO DAILY 90 days cholecalciferol (vitamin D3) 50 mcg PO DAILY tmsopqafcpx-suasyqazr-sojmprmp 100-62.5-25 mcg (Trelegy Ellipta) 1 inh inhalation DAILY 30 days ibuprofen mg PO pxiwepxd-hln-kesx-FA-vit K-lut 8 mg iron-400 mcg-50 mcg (Centrum Silver Women) 1 tab PO DAILY Tobacco use date assessed: 12/26/22 Fall risk assessment: No Falls in past year Last assessed Fall Risk: 02/11/23 Dental Screening Dental Screen Date: 02/11/23 Did you have a dental visit in the last 12 months?: Yes Did you have a dental problem in the last 6 months where you did not have access to dental care?: No Was dental information given to patient?: Patient has dentist HPI Physical exam - Due for colorectal cancer screen HPI Details Patient is 73-year-old female came in today for a physical examination Patient is doing much better using maintenance inhaler regularly now Patient says that she can actually breathe and is feeling much improved. She is seeing Dr. Barfield as her research laboratory specialist She had repeated CT scan done few weeks ago which showed stable pulmonary nodule and resolution of some of the nodules. Patient have multiple joint arthritis she is currently taking ibuprofen she is requesting a different medication that she can take only once a day as needed She will stop taking all other NSAIDs I have sent Celebrex 200 mg we will book three-week follow-up appointment on that. She also have appointment coming up with the Cardiology to be evaluated for coronary artery disease. Patient has declined to do mammogram Declined to do Pap smear Declined to do colonoscopy She will return in 6 months for follow-up appointment Lab order placed to be done fasting. [facility] Medical History COPD, severe Esophageal thickening Hypertension, essential Personal history of nicotine dependence Pulmonary nodules/lesions, multiple Worsening functional endurance Family History Mother COPD (chronic obstructive pulmonary disease) Other Substance use disorder Social History Housing: Apartment Alcohol intake: current Alcohol intake frequency: does not drink Patient Tobacco Use Status: Former Tobacco user (5 years ago ) Quit Date: 2014 Tobacco use type: Cigarette Years Smoked: (onset 14yo, 1ppd x 50yrs, 50pyh - quit ~2014) e-Cigarette/Vaping Use: Never Used service: No Current occupational status: retired Cognitive needs: No Hearing needs: No Vision needs: Yes Questionnaire PHQ-9 Over the last 2 weeks, how often have you been bothered by any of the following problems? 1. Little interest or pleasure in doing things: not at all 2. Feeling down, depressed, or hopeless: not at all 3. Trouble falling or staying asleep, or sleeping too much: not at all 4. Feeling tired or having little energy: not at all 5. Poor appetite or overeating: not at all 6. Feeling bad about yourself - or that you are a failure or have let yourself or your family down: not at all 7. Trouble concentrating on things, such as reading the newspaper or watching television: not at all 8. Moving or speaking so slowly that other people could have noticed. Or the opposite - being so fidgety or restless that you have been moving around a lot more than usual: not at all 9. Thoughts that you would be better off or of hurting yourself in some way: not at all Total score: 0 Depression Screening Interpretation: Negative 46302 - PHQ-9 Billing: Yes Source: Developed by Drs. Dereje Alvarado, Tania Baptiste, Junior Espinoza and colleagues, with an educational susie from [employer]. Thrive Questionnaire Date Thrive assessed: 12/26/22 DONALD-7 AMB Questionnaire DONALD-7 Date DONALD - 7 assessed: 02/11/23 Feeling nervous, anxious, or on edge: 0 = Not at all Not being able to stop or control worryin = Not at all Worrying too much about different things: 0 = Not at all Trouble relaxin = Not at all Being so restless that it is hard to sit still: 0 = Not at all Becoming easily annoyed or irritable: 0 = Not at all Feeling afraid as if something awful might happen: 0 = Not at all Total DNOALD-7 score (0-4 normal; 5-9 mild; 10-14 moderate; 15-21 severe): 0 Source: Developed by Drs. Dereje Alvarado, Tania Baptiste, Junior Espinoza and colleagues, with an educational susie from [employer]. DONALD-7 Assessment Billing DONALD-7 Assessment Tool: DONALD-7 Assessment 00886 Review of Systems Const Denies chills, Denies fever(s) and Denies headache(s) Eyes Denies blurry vision ENT Denies headache(s), Denies nasal discharge, Denies nasal obstruction, Denies odynophagia and Denies sinus pain Card Denies chest pain at rest and Denies chest pain with activity Resp Denies cough and Denies hemoptysis GI Denies diarrhea, Denies odynophagia, Denies vomiting and Denies hematemesis Reports as per HPI Musc Denies abnormal gait Skin/Breast Reports as per HPI Neuro Denies Neuro-related abnormal movements, Denies Abnormal speech present, Denies abnormal gait, Denies headache(s) and Denies Sensory deficit (Neuro) Psych Denies mood swings and Denies paranoia Endo Reports as per HPI Rian/Lymph Reports as per HPI Aller/Immun Reports as per HPI Physical exam (Primary Care) Vital Signs: Last Vital Signs Pulse 78 02/11/23 10:31 BP 130/84 02/11/23 10:31 Pulse Ox 94 02/11/23 10:31 Oxygen Delivery Method Room Air 02/11/23 10:31 BMI result Body Mass Index 27.5 Tobacco/Smoking Status: Tobacco use Status Tobacco use date assessed 12/26/22 02/11/23 10:30 Patient Tobacco Use Status Former Tobacco user (5 years 02/11/23 10:30 ago ) Tobacco use type Cigarette 02/11/23 10:30 e-Cigarette/Vaping Use Never Used 02/11/23 10:30 PHQ-9: PHQ-9 Score PHQ-9: Total score 0 02/11/23 11:08 Depression Screening Interpretation: Negative Thrive Assessment: Date of Thrive Assessment Date Thrive assessed 12/26/22 02/11/23 10:30 Const General: cooperative, comfortable and no acute distress Orientation/consciousness: patient oriented x3 HENMT Head: Yes normocephalic and Yes atraumatic Eyes General: appearance normal, both eyes and all related structures Pupils: Equal, round and reactive pupils present EOM: EOMs intact bilaterally Neck Neck: Yes supple and No lymphadenopathy Thyroid: Thyroid normal Lymphatic: no lymphadenopathy noted Resp Effort & Inspection: normal respiratory effort and able to speak in complete sentences Auscultation: clear to auscultation bilaterally Cardio Heart sounds: S1 normal heart sound present and S2 normal heart sound present GI Palpation (GI): Soft to palpation and nontender Auscultation: normal bowel sounds General: Yes no CVA tenderness Back/Spine/Pelvis Back: no CVA tenderness Skin General skin exam: elasticity normal and turgor normal Neuro General: patient oriented x3 and gait normal Cranial nerves: Yes Equal, round and reactive pupils present Speech: No Abnormal speech present Sensory Exam: No Sensory deficit (Neuro) Coordination: tandem gait normal and Romberg test negative Extrem General: Yes normal exam except as noted and No edema Assessment and Plan Assessment & Plan (1) Encounter for general adult medical examination with abnormal findings: Code(s): Z00.01 - Encounter for general adult medical examination with abnormal findings (2) Impaired fasting blood sugar: Code(s): R73.01 - Impaired fasting glucose (3) CAD (coronary artery disease): Code(s): I25.10 - Atherosclerotic heart disease of [place] coronary artery without angina pectoris Qualifiers: Coronary Disease-Associated Artery/Lesion type: due to calcified coronary lesion Qualified Code(s): I25.10 - Atherosclerotic heart disease of [place] coronary artery without angina pectoris; I25.84 - Coronary atherosclerosis due to calcified coronary lesion (4) LFT elevation: Code(s): R79.89 - Other specified abnormal findings of blood chemistry (5) COPD, severe: Comment: COPD IS ACTUALLY VERY SEVERE, FORTUNATELY SHE IS STAYING VERY STABLE. TX: TRELEGY ELLIPTA 1 INHALATION DAILY ALBUTEROL HFA 2 PUFFS Q 4-6 HOURS ONLY P.R.N. SCRIPTS ARE RENEWED. PATIENT IS UP TO DATE WITH HER VACCINATIONS. Code(s): J44.9 - Chronic obstructive pulmonary disease, unspecified (6) Hypertension, essential: Code(s): I10 - Essential (primary) hypertension (7) Environmental allergies: Code(s): Z91.09 - Other allergy status, other than to drugs and biological substances (8) Arthritis, multiple joint involvement: Code(s): M12.9 - Arthropathy, unspecified Plan Patient is 73-year-old female came in today for a physical examination Patient is doing much better using maintenance inhaler regularly now Patient says that she can actually breathe and is feeling much improved. She is seeing Dr. Barfield as her research laboratory specialist She had repeated CT scan done few weeks ago which showed stable pulmonary nodule and resolution of some of the nodules. Patient have multiple joint arthritis she is currently taking ibuprofen she is requesting a different medication that she can take only once a day as needed She will stop taking all other NSAIDs I have sent Celebrex 200 mg we will book three-week follow-up appointment on that. She also have appointment coming up with the Cardiology to be evaluated for coronary artery disease. Patient has declined to do mammogram Declined to do Pap smear Declined to do colonoscopy She will return in 6 months for follow-up appointment Lab order placed to be done fasting. Orders: Orders Complete Blood Count Auto Diff Today I10 - Essential (primary) hypertension, I25.10 - Atherosclerotic heart disease of [place] coronary artery without angina pectoris, J44.9 - Chronic obstructive pulmonary disease, unspecified, R73.01 - Impaired fasting glucose, R79.89 - Other specified abnormal findings of blood chemistry, Z00.01 - Encounter for general adult medical examination with abnormal findings, Z91.09 - Other allergy status, other than to drugs and biological substances Comprehensive [place]. Panel Fast Today I10 - Essential (primary) hypertension, I25.10 - Atherosclerotic heart disease of [place] coronary artery without angina pectoris, J44.9 - Chronic obstructive pulmonary disease, unspecified, R73.01 - Impaired fasting glucose, R79.89 - Other specified abnormal findings of blood chemistry, Z00.01 - Encounter for general adult medical examination with abnormal findings, Z91.09 - Other allergy status, other than to drugs and biological substances Lipid Panel Today I10 - Essential (primary) hypertension, I25.10 - Atherosclerotic heart disease of [place] coronary artery without angina pectoris, J44.9 - Chronic obstructive pulmonary disease, unspecified, R73.01 - Impaired fasting glucose, R79.89 - Other specified abnormal findings of blood chemistry, Z00.01 - Encounter for general adult medical examination with abnormal findings, Z91.09 - Other allergy status, other than to drugs and biological substances TSH reflex Free T4 Today I10 - Essential (primary) hypertension, I25.10 - Atherosclerotic heart disease of [place] coronary artery without angina pectoris, J44.9 - Chronic obstructive pulmonary disease, unspecified, R73.01 - Impaired fasting glucose, R79.89 - Other specified abnormal findings of blood chemistry, Z00.01 - Encounter for general adult medical examination with abnormal findings, Z91.09 - Other allergy status, other than to drugs and biological substances Vitamin D 25-OH (D2 and D3) Today I10 - Essential (primary) hypertension, I25.10 - Atherosclerotic heart disease of [place] coronary artery without angina pectoris, J44.9 - Chronic obstructive pulmonary disease, unspecified, R73.01 - Impaired fasting glucose, R79.89 - Other specified abnormal findings of blood chemistry, Z00.01 - Encounter for general adult medical examination with abnormal findings, Z91.09 - Other allergy status, other than to drugs and biological substances Medications: New celecoxib (Celebrex) 200 mg PO DAILY 30 days PRN 30 caps 0RF Arthritic pain Coding Level of Care Code Est Pt Prev Care >65y(68983) Diagnoses Encounter for general adult medical examination with abnormal findings Z00.01 Impaired fasting blood sugar R73.01 CAD (coronary artery disease) I25.10; I25.84 Coronary Disease-Associated Artery/Lesion type: due to calcified coronary lesion LFT elevation R79.89 COPD, severe J44.9 Hypertension, essential I10 Environmental allergies Z91.09 Arthritis, multiple joint involvement M12.9 Additional Codes DONALD-7 Assessment Billing - DONALD-7 Assessment Tool: DONALD-7 Assessment [id number] ([id number])
[2023-02-11 10:31] VITALS: BP 130/84; PULSE 78; O2SAT 94; BMI 27.5
== END 2023-02-11 10:56 | disposition home or self-care (01) ==
PROVIDERS: Visit Provider Internal Medicine
DX: Z00.00 Encounter for general adult medical examination without abnormal findings (principal); J44.9 Chronic obstructive pulmonary disease, unspecified; I10 Essential (primary) hypertension; Z91.09 Other allergy status, other than to drugs and biological substances; R73.01 Impaired fasting glucose; I25.10 Atherosclerotic heart disease of native coronary artery without angina pectoris; I25.84 Coronary atherosclerosis due to calcified coronary lesion; M12.9 Arthropathy, unspecified
CPT/HCPCS: 99397

== ENCOUNTER 2023-02-13 09:00 | Outpatient (AMB) | payer OTHER, SELFPAY ==
[2023-02-13 09:08] VITALS: BP 122/82; PULSE 77; BMI 27.3
--- NOTE | 2023-02-13 09:08 | MHC.OFFVIS ---
Intake Vital Signs 02/13/23 09:08 Height 5 ft 3 in Weight 154 lb 5.177 oz BMI 27.3 BP 122/82 Blood Pressure Location Lt brachial Position Sitting Pulse 77 Intake Visit Reasons: heart disease of [place] coronary artery w/o angina Intake Note: New patient dx CAD on echo c/o sob but has COPD Senior Validation Engineer Required: No Allergies perflutren Adverse Reaction (Verified 02/11/23 10:31) Back Pain Medication List - Last Reconciled 02/13/23 by Pawel Fuentes MD albuterol sulfate 90 mcg/actuation 2 puffs PO Q4-6H PRN 30 days atenolol 75 mg (1.5 x 50 mg) PO DAILY 90 days celecoxib (Celebrex) 200 mg PO DAILY PRN 30 days cholecalciferol (vitamin D3) 50 mcg PO DAILY swzhjgzttwv-scvbwbjko-ocsueucb 100-62.5-25 mcg (Trelegy Ellipta) 1 inh inhalation DAILY 30 days ibuprofen mg PO fcgqkfnm-xuw-gikw-FA-vit K-lut 8 mg iron-400 mcg-50 mcg (Centrum Silver Women) 1 tab PO DAILY HPI HPI Comments History of Present Illness Details Thank you for referring Charissa in cardiology consultation today after an abnormal echocardiogram. Echocardiogram suggestive of normal LV systolic function but regional wall motion abnormality in RCA territory. She had prior CT scan for her lungs which was suggestive for coronary artery calcification and suggestive of underlying coronary artery disease. She does not recall any prior cardiac events. Denies any prolonged chest pains in the past. She does have exertional shortness of breath related to her COPD but denies any exertional chest pain. She denies any heart failure symptoms. Denies any prolonged palpitations, irregular heartbeat, lightheadedness, syncope. She takes all medications. Last LDL in September was 111 mg/dL. She is currently not smoking and her COPD is under control and her symptoms are stable [facility] Medical History COPD, severe Esophageal thickening Hypertension, essential Personal history of nicotine dependence Pulmonary nodules/lesions, multiple Worsening functional endurance Family History Mother COPD (chronic obstructive pulmonary disease) Other Substance use disorder Social History Housing: Apartment Alcohol intake: current Alcohol intake frequency: does not drink Patient Tobacco Use Status: Former Tobacco user (5 years ago ) Quit Date: 2014 Tobacco use type: Cigarette Years Smoked: (onset 14yo, 1ppd x 50yrs, 50pyh - quit ~2015) e-Cigarette/Vaping Use: Never Used service: No Current occupational status: retired Cognitive needs: No Hearing needs: No Vision needs: Yes Review of Systems Const Denies chills, Denies daytime sleepiness, Denies fatigue, Denies fever(s), Denies frequent falls, Denies poor appetite, Denies snoring, Denies stops breathing during sleep, Denies weakness, Denies weight gain and Denies weight loss Eyes Denies loss of vision ENT Denies dizziness and Denies hearing loss Card Denies chest pain, Denies claudication, Denies leg edema, Denies lightheadedness, Denies palpitations, Denies dyspnea, Denies dyspnea on exertion and Denies orthopnea Resp Denies cough, Denies excessive phlegm production, Denies dyspnea, Denies dyspnea on exertion, Denies snoring and Denies wheezing GI Denies abdominal pain, Denies hematochezia, Denies change in bowel habits, Denies nausea and Denies vomiting Denies urinary frequency and Denies dysuria Musc Denies arthralgias, Denies muscle weakness, Denies numbness and Denies other (frequent falls) Skin/Breast Denies nail changes and Denies rash Neuro Denies Abnormal speech present, Denies dizziness, Denies frequent falls, Denies loss of vision, Denies memory loss, Denies numbness and Denies weakness Psych Denies depression and Denies memory loss Endo Denies fatigue and Denies palpitations Rian/Lymph Reports easy bruising and Reports other (anemia) Aller/Immun Denies wheezing Physical Exam Vital Signs: Last Vital Signs Pulse 77 02/13/23 09:08 BP 122/82 02/13/23 09:08 BMI result Body Mass Index 27.3 Const General: cooperative, comfortable, no acute distress, alert and awake Nutritional Appearance: overweight Orientation/consciousness: patient oriented x3 Limitations: no limitations HEENT Head: Yes normocephalic and Yes atraumatic Neck Neck: Yes trachea midline, Yes supple and Yes no JVD Resp Effort & Inspection: normal respiratory effort Auscultation: clear to auscultation bilaterally and diminished lung sounds Cardio Jugular venous distension: no JVD Palpation: normal PMI Rate: regular rate Rhythm: regular rhythm Heart sounds: S1 normal heart sound present, S2 normal heart sound present, no click, no gallops, no murmurs and no rubs GI Auscultation: normal bowel sounds Skin General skin exam: no rashes or lesions noted Neuro General: patient oriented x3 and no focal motor deficits Speech: No Abnormal speech present Extrem General: Yes no clubbing, cyanosis or edema Assessment & Plan Assessment & Plan (1) CAD (coronary artery disease): Code(s): I25.10 - Atherosclerotic heart disease of [place] coronary artery without angina pectoris Qualifiers: Coronary Disease-Associated Artery/Lesion type: due to calcified coronary lesion Qualified Code(s): I25.10 - Atherosclerotic heart disease of [place] coronary artery without angina pectoris; I25.84 - Coronary atherosclerosis due to calcified coronary lesion Plan: CAD noted based on coronary artery calcification noted on CT scan with possible RCA territory myocardial infarction. However wall motion abnormality on echocardiogram in her case especially with difficult studies could be due to off axis views. Need to rule out prognostically significant coronary artery disease. Suggest her to undergo vasodilating myocardial perfusion imaging to further assess for the same. This will guide in terms of treatment and further interventions if so required. She does have symptoms exertional shortness of breath related to COPD which may mask her anginal symptom. She is encouraged to be on statin therapy, atorvastatin 40 or rosuvastatin 20 mg daily to target goal LDL less than 70 mg/dL. She is awaiting another blood work in the near future prescribed through your office. Will also consider repeating CRP levels. Smoking cessation was applauded. Her blood pressure is currently well optimized. Encouraged to maintain blood pressure at home maintain a log. Low-salt diet was discussed. Advised to maintain activity level as tolerated. Will follow up in the clinic in 4 weeks time after stress testing. Thank you for allowing me to partake in the care Coding Level of Care Code New Pt Level 4 (61811) Diagnoses CAD (coronary artery disease) I25.10; I25.84 Coronary Disease-Associated Artery/Lesion type: due to calcified coronary lesion
== END 2023-02-13 09:43 | disposition home or self-care (01) ==
PROVIDERS: PCP Internal Medicine; Referring Provider Internal Medicine; Visit Provider Internal Medicine Cardiovascular Disease
DX: I25.10 Atherosclerotic heart disease of native coronary artery without angina pectoris (principal); I25.84 Coronary atherosclerosis due to calcified coronary lesion
CPT/HCPCS: 99204; 99214

== ENCOUNTER → 2023-02-13 09:00 | Outpatient (BNVA) | payer OTHER, SELFPAY | PROVIDERS: PCP Internal Medicine; Referring Provider Internal Medicine; Visit Provider Internal Medicine Cardiovascular Disease | DX: I25.10 Atherosclerotic heart disease of native coronary artery without angina pectoris (principal); I25.84 Coronary atherosclerosis due to calcified coronary lesion | CPT/HCPCS: 99202 ==

== ENCOUNTER 2023-03-21 09:57 | Outpatient (REF) | payer OTHER, SELFPAY ==
[2023-03-21 12:23] LABS: Alanine Aminotransferase 17 U/L (0-31); Alkaline Phosphatase 105 U/L (39-117); Anion Gap 18 (12-20); Aspartate Amino Transferase 25 U/L (5-31); Bilirubin Total 0.9 mg/dL (0.0-1.0); Blood Urea Nitrogen 12 mg/dL (9-16); Calcium 10.1 mg/dL (8.4-10.2); Carbon Dioxide 26 mmol/L (22-29); Chloride 103 mmol/L (96-108); Cholesterol 177 mg/dL (<200); Estimated Glomerular Filt Rate > 60; Glucose Fasting 108 mg/dL (60-99); HDL Cholesterol 42 mg/dL (>40); LDL Cholesterol Calculated 97 mg/dL (<100); Potassium 4.2 mmol/L (3.3-5.1); Sodium 143 mmol/L (135-145); Total Protein 7.1 g/dL (6.5-8.0); Triglycerides 194 mg/dL (<150)
[2023-03-26 13:03] LABS: Vitamin D 25-OH, D2 <4 ng/mL; Vitamin D 25-OH, D3 51 ng/mL; Vitamin D 25-OH, Total 51 ng/mL (30-100)
== END 2023-03-21 09:58 | disposition home or self-care (01) ==
LOC: HO.HMGCLDS 09:57
PROVIDERS: PCP Internal Medicine; Visit Provider Internal Medicine
DX: Z00.01 Encounter for general adult medical examination with abnormal findings (principal); R73.01 Impaired fasting glucose; I25.10 Atherosclerotic heart disease of native coronary artery without angina pectoris; R79.89 Other specified abnormal findings of blood chemistry; J44.9 Chronic obstructive pulmonary disease, unspecified; I10 Essential (primary) hypertension; Z91.09 Other allergy status, other than to drugs and biological substances
CPT/HCPCS: 36415; 80053; 80061; 82306; 84443; 85025

== ENCOUNTER → 2023-08-26 09:31 | Outpatient (REF) | payer OTHER, SELFPAY ==
--- NOTE | ~2023-08-26 | NM_ITS ---
Myocardial perfusion study Indication: Atherosclerotic heart disease to evaluate for myocardial ischemia Technique: The patient was brought in for a Lexiscan perfusion study on 08/26/2023. Patient performed low-level exercise and was injected 0.4 mg of Lexiscan intravenously. Within a minute of injection, 25 mCi of sestamibi was given intravenously. Images were obtained using the SPECT gamma camera interlaced with the gating device. Images were obtained in supine position. Resting perfusion study was performed on 09/01/2023. Patient was administered 25 mCi of sestamibi intravenously at rest. Images were then obtained in supine position. Images obtained with and without CT attenuation. Total DLP 48 mGy-cm. Images were processed with the software and compared side to side in short axis, horizontal long axis and vertical long axis views. Findings: The stress perfusion study showed non attenuated images show moderately reduced uptake in the basal septum of the LV myocardium. Remainder of the LV myocardium is normally perfused. There is suggestion all left ventricle hypertrophy. Attenuated corrected images also show moderately reduced uptake in the basal septum and mild thinning of the remainder of the septum.. The gated study shows normal LV systolic function with calculated LVEF of 65%. LV cavity is normal in size. The gated study shows normal systolic wall thickening and contraction of segments. Resting study shows no change in perfusion pattern compared to stress perfusion study. Gating at rest reveals normal systolic wall motion with ejection fraction at greater than 60%. The findings are consistent with fixed defect of the basal septum which would represent nontransmural myocardial infarction or conduction abnormality such as left bundle block. There is no evidence of ischemia. NM/NM beatrice perf SPECT rest & str Impression: 1. Myocardial perfusion imaging study shows no ischemia with fixed basal septal defect which could represent nontransmural myocardial infarction or conduction abnormality 2. Gated LVEF is 65% 3. Transient ischemic dilatation not present EKG is nondiagnostic for ischemia
--- NOTE | 2023-08-26 09:37 | CA_ITS ---
Acquisition Time: 2023-08-26 09:39:38 Total Exercise Time: 00:02:00 Test Indications: ABN ECHO Medications: ALBUTEROL ATENOLOL CELEBREX TRELOGY ELLIPTA Protocol: LEXISCAN Max HR: 102 BPM 68% of Pred: 149 BPM Max BP: 140/080 mmHG Max Work Load: 1.0 METS Pharmacological stress test with Lexiscan injection while sitting and kicking her legs, with mild to moderate SOB, no chest discmfort, without arrhythmias, with normotensive response to injection, with nondiagnostic EKGs. Aminophylline 75mg IVP given to reverse Lexiscan. Test reviewed with Dr. Fuentes Referred By: Pawel Fuentes Overread By: Jenn Flores
== END ==
LOC: HO.CARD 09:31
PROVIDERS: PCP Internal Medicine; Visit Provider Internal Medicine Cardiovascular Disease
DX: I25.10 Atherosclerotic heart disease of native coronary artery without angina pectoris (principal); I25.84 Coronary atherosclerosis due to calcified coronary lesion
CPT/HCPCS: 78452; 93017; A9500; J0280; J2785

== ENCOUNTER → 2023-08-26 09:37 | Outpatient (BNV) | payer OTHER, SELFPAY | PROVIDERS: PCP Internal Medicine; Visit Provider Nurse Practitioner | DX: I25.10 Atherosclerotic heart disease of native coronary artery without angina pectoris (principal); I51.0 Cardiac septal defect, acquired | CPT/HCPCS: 78452; 93016; 93018 ==

== ENCOUNTER 2023-08-28 10:32 | Outpatient (AMB) | payer OTHER, SELFPAY ==
[2023-08-28 10:33] VITALS: BP 144/78; PULSE 78; O2SAT 98; BMI 25.5
--- NOTE | 2023-08-28 10:33 | A.OFFPC_ITS ---
Vital Signs 08/28/23 10:33 Height 5 ft 3 in Weight 144 lb BMI 25.5 BP 144/78 H Blood Pressure Location Rt brachial Position Sitting Pulse 78 Pulse Source Pulse Oximeter Pulse Oximetry (%) 98 Oxygen Delivery Method Room Air Intake Visit Reasons: 6 month fu Allergies perflutren Adverse Reaction (Verified 08/28/23 10:33) Back Pain Medication List - Last Reconciled 08/28/23 by Keny Alves MD albuterol sulfate 90 mcg/actuation 2 puffs PO Q4-6H PRN 30 days atenolol 75 mg (1.5 x 50 mg) PO DAILY 90 days cholecalciferol (vitamin D3) 50 mcg PO DAILY xwlnacbhuyr-eycfkumob-dppzjjsn 100-62.5-25 mcg (Trelegy Ellipta) 1 ea PO DAILY ibuprofen mg PO kjucfdtk-mqd-rvxz-FA-vit K-lut 8 mg iron-400 mcg-50 mcg (Centrum Silver Women) 1 tab PO DAILY Tobacco use date assessed: 08/28/23 Fall risk assessment: No Falls in past year Last assessed Fall Risk: 08/28/23 Dental Screening Dental Screen Date: 08/28/23 Did you have a dental visit in the last 12 months?: Yes Did you have a dental problem in the last 6 months where you did not have access to dental care?: No Was dental information given to patient?: Patient has dentist HPI 6 month fu HPI Details Patient is 73-year-old female came in today for her regular follow-up appointment Patient have a severe COPD, currently seeing Dr. Barfield provider education specialist for the management She does not want to be on oxygen but she will talk to Dr. Barfield about a small device that can deliver oxygen as needed Patient have multiple joint arthritis patient is taking fpdo-eep-naqknsd ibuprofen as needed She also have appointment coming up with the Cardiology to be evaluated for coronary artery disease. Blood pressure is stable with atenolol 75 mg daily Patient is also on vitamin-D supplement She has impaired fasting sugar, due for labs. Patient will return in February for physical exam appointment, she is coming in every 6 months for follow-up [facility] Medical History Esophageal thickening Personal history of nicotine dependence Pulmonary nodules/lesions, multiple Worsening functional endurance COPD, severe Hypertension, essential Family History Mother COPD (chronic obstructive pulmonary disease) Other Substance use disorder Social History Housing: Apartment Alcohol intake: current Alcohol intake frequency: does not drink Patient Tobacco Use Status: Former Tobacco user (5 years ago ) Quit Date: 2014 Tobacco use type: Cigarette Years Smoked: (onset 14yo, 1ppd x 50yrs, 50pyh - quit ~2014) e-Cigarette/Vaping Use: Never Used service: No Current occupational status: retired Cognitive needs: No Hearing needs: No Vision needs: Yes Questionnaire PHQ-9 Over the last 2 weeks, how often have you been bothered by any of the following problems? 1. Little interest or pleasure in doing things: not at all 2. Feeling down, depressed, or hopeless: not at all 3. Trouble falling or staying asleep, or sleeping too much: not at all 4. Feeling tired or having little energy: not at all 5. Poor appetite or overeating: not at all 6. Feeling bad about yourself - or that you are a failure or have let yourself or your family down: not at all 7. Trouble concentrating on things, such as reading the newspaper or watching television: not at all 8. Moving or speaking so slowly that other people could have noticed. Or the opposite - being so fidgety or restless that you have been moving around a lot more than usual: not at all 9. Thoughts that you would be better off or of hurting yourself in some way: not at all Total score: 0 Depression Screening Interpretation: Negative Depression Screening Done: Yes 10946 - PHQ-9 Billing: Yes Source: Developed by Drs. Dereje Alvarado, Tania Baptiste, Junior Espinoza and colleagues, with an educational susie from [employer]. Thrive Questionnaire Date Thrive assessed: 12/26/22 DONALD-7 AMB Questionnaire DONALD-7 Date DONALD - 7 assessed: 02/11/23 Feeling nervous, anxious, or on edge: 0 = Not at all Not being able to stop or control worryin = Not at all Worrying too much about different things: 0 = Not at all Trouble relaxin = Not at all Being so restless that it is hard to sit still: 0 = Not at all Becoming easily annoyed or irritable: 0 = Not at all Feeling afraid as if something awful might happen: 0 = Not at all Total DONALD-7 score (0-4 normal; 5-9 mild; 10-14 moderate; 15-21 severe): 0 Source: Developed by Drs. Dereje Alvarado, Tania Baptiste, Junior reeder nd colleagues, with an educational susie from [employer]. DONALD-7 Assessment Billing DONALD-7 Assessment Tool: DONALD-7 Assessment 26850 Review of Systems Const Denies chills and Denies fever(s) ENT Denies epistaxis and Denies nasal discharge Card Denies chest pain Resp Denies chest congestion and Denies hemoptysis GI Denies diarrhea and Denies nausea Skin/Breast Denies rash Neuro Reports no additional complaints Psych Reports no additional complaints Endo Reports no additional complaints Physical exam (Primary Care) Vital Signs: Last Vital Signs Pulse 78 08/28/23 10:33 BP 144/78 H 08/28/23 10:33 Pulse Ox 98 08/28/23 10:33 Oxygen Delivery Method Room Air 08/28/23 10:33 BMI result Body Mass Index 25.5 Tobacco/Smoking Status: Tobacco use Status Tobacco use date assessed 08/28/23 08/28/23 10:40 Patient Tobacco Use Status Former Tobacco user (5 years 08/28/23 10:40 ago ) Tobacco use type Cigarette 08/28/23 10:40 e-Cigarette/Vaping Use Never Used 08/28/23 10:40 Depression Screening Interpretation: Negative Thrive Assessment: Date of Thrive Assessment Date Thrive assessed 12/26/22 08/28/23 10:40 Const General: cooperative, comfortable and no acute distress Orientation/consciousness: patient oriented x3 HENMT Head: Yes normocephalic Eyes General: appearance normal, both eyes and all related structures Neck Neck: Yes supple Resp Effort & Inspection: normal respiratory effort, no cough and no stridor Cardio Rhythm: regular rhythm Heart sounds: S1 normal heart sound present and S2 normal heart sound present Skin General skin exam: turgor normal Neuro General: patient oriented x3, tone normal and moves all extremities Extrem Right lower extremity: no edema Left lower extremity: no edema Assessment and Plan Assessment & Plan (1) Hypertension, essential: Code(s): I10 - Essential (primary) hypertension (2) COPD, severe: Comment: COPD IS ACTUALLY VERY SEVERE, FORTUNATELY SHE IS STAYING VERY STABLE. TX: EFRAIN ELLIPTA 1 INHALATION DAILY ALBUTEROL HFA 2 PUFFS Q 4-6 HOURS ONLY P.R.N. SCRIPTS ARE RENEWED. PATIENT IS UP TO DATE WITH HER VACCINATIONS. Code(s): J44.9 - Chronic obstructive pulmonary disease, unspecified (3) Impaired fasting blood sugar: Code(s): R73.01 - Impaired fasting glucose (4) CAD (coronary artery disease): Code(s): I25.10 - Atherosclerotic heart disease of [place] coronary artery without angina pectoris Qualifiers: Coronary Disease-Associated Artery/Lesion type: due to calcified coronary lesion Qualified Code(s): I25.10 - Atherosclerotic heart disease of [place] coronary artery without angina pectoris; I25.84 - Coronary atherosclerosis due to calcified coronary lesion (5) LFT elevation: Code(s): R79.89 - Other specified abnormal findings of blood chemistry (6) Environmental allergies: Code(s): Z91.09 - Other allergy status, other than to drugs and biological substances (7) Arthritis, multiple joint involvement: Code(s): M12.9 - Arthropathy, unspecified Plan Patient is 73-year-old female came in today for her regular follow-up appointment Patient had Lexiscan cardiac stress test done recently, report reviewed Test was negative for ischemia Patient have a severe COPD, currently seeing Dr. Barfield provider education specialist for the management She does not want to be on oxygen but she will talk to Dr. Barfield about a small device that can deliver oxygen as needed Patient have multiple joint arthritis patient is taking yqsc-swt-lkublqn ibuprofen as needed She also have appointment coming up with the Cardiology to be evaluated for coronary artery disease. Blood pressure is stable with atenolol 75 mg daily Patient is also on vitamin-D supplement She has impaired fasting sugar, due for labs. Patient will return in February for physical exam appointment, she is coming in every 6 months for follow-up Orders: Orders Complete Blood Count Auto Diff Today I10 - Essential (primary) hypertension, I25.10 - Atherosclerotic heart disease of [place] coronary artery without angina pectoris, J44.9 - Chronic obstructive pulmonary disease, unspecified, R73.01 - Impaired fasting glucose, R79.89 - Other specified abnormal findings of blood chemistry, Z91.09 - Other allergy status, other than to drugs and biological substances Comprehensive Met. Panel Today I10 - Essential (primary) hypertension, I25.10 - Atherosclerotic heart disease of [place] coronary artery without angina pectoris, J44.9 - Chronic obstructive pulmonary disease, unspecified, R73.01 - Impaired fasting glucose, R79.89 - Other specified abnormal findings of blood chemistry, Z91.09 - Other allergy status, other than to drugs and biological substances Hemoglobin A1c Today I10 - Essential (primary) hypertension, I25.10 - Atherosclerotic heart disease of [place] coronary artery without angina pectoris, J44.9 - Chronic obstructive pulmonary disease, unspecified, R73.01 - Impaired fasting glucose, R79.89 - Other specified abnormal findings of blood chemistry, Z91.09 - Other allergy status, other than to drugs and biological substances LDL Cholesterol Direct Today I10 - Essential (primary) hypertension, I25.10 - Atherosclerotic heart disease of [place] coronary artery without angina pectoris, J44.9 - Chronic obstructive pulmonary disease, unspecified, R73.01 - Impaired fasting glucose, R79.89 - Other specified abnormal findings of blood chemistry, Z91.09 - Other allergy status, other than to drugs and biological substances Medications: Refilled atenolol 75 mg (1.5 x 50 mg) PO DAILY 135 tabs 1RF 90 days Coding Level of Care Code Est Pt Level 4 (43489) Diagnoses Hypertension, essential I10 COPD, severe J44.9 Impaired fasting blood sugar R73.01 Coronary artery disease due to calcified coronary lesion I25.10; I25.84 Coronary Disease-Associated Artery/Lesion type: due to calcified coronary lesion LFT elevation R79.89 Environmental allergies Z91.09 Arthritis, multiple joint involvement M12.9 Additional Codes DONALD-7 Assessment Billing - DONALD-7 Assessment Tool: DONALD-7 Assessment 15183 ([id number])
== END 2023-08-28 15:56 | disposition home or self-care (01) ==
PROVIDERS: PCP Internal Medicine; Visit Provider Internal Medicine
DX: I10 Essential (primary) hypertension (principal); J44.9 Chronic obstructive pulmonary disease, unspecified; R73.01 Impaired fasting glucose; I25.10 Atherosclerotic heart disease of native coronary artery without angina pectoris; I25.84 Coronary atherosclerosis due to calcified coronary lesion; R79.89 Other specified abnormal findings of blood chemistry; Z91.09 Other allergy status, other than to drugs and biological substances; M12.9 Arthropathy, unspecified
CPT/HCPCS: 99214

== ENCOUNTER 2023-09-17 10:11 | Outpatient (AMB) | payer OTHER, SELFPAY ==
[2023-09-17 10:33] VITALS: BP 120/72; PULSE 62; O2SAT 92; BMI 25.2
--- NOTE | 2023-09-17 10:33 | A.OFFVIS_ITS ---
Intake Vital Signs 09/17/23 10:33 Height 5 ft 3 in Weight 142 lb BMI 25.2 BP 120/72 Blood Pressure Location Lt brachial Position Sitting Pulse 62 Pulse Source Pulse Oximeter Pulse Oximetry (%) 92 Oxygen Delivery Method Room Air Intake Visit Reasons: COPD Intake Note: pt is here for follow up and states she would like to talk boost oxygen canister, and would like to stop albuterol if possible Board Hammer Operator Required: No Allergies perflutren Adverse Reaction (Verified 09/17/23 11:00) Back Pain Medication List - Last Reconciled 09/17/23 by Ed Barfield MD albuterol sulfate 90 mcg/actuation 2 puffs PO Q4-6H PRN 30 days atenolol 75 mg (1.5 x 50 mg) PO DAILY 90 days cholecalciferol (vitamin D3) 50 mcg PO DAILY mxvyapxezch-jhzqykokl-uicszogu 100-62.5-25 mcg (Trelegy Ellipta) 1 ea PO DAILY ykvaghmp-pcy-mnts-FA-vit K-lut 8 mg iron-400 mcg-50 mcg (Centrum Silver Women) 1 tab PO DAILY Do you need a note to return to daycare/school/sports/work: No HPI COPD HPI Details 73 YEARS OLD VERY PLEASANT FEMALE COMES FOR 6 MONTHS FOLLOW-UP. SHE HAS BEEN DOING VERY WELL AND REMAINED STABLE. HAS HAD NO ACUTE INFECTION OR EXACERBATION. DOES GET SHORT OF BREATH WHEN SHE VACUUMS HER FLOOR OR CLIMBS STAIRS. HAS OCCASIONAL COUGH WHICH IS MOSTLY NONPRODUCTIVE. [facility] Medical History Esophageal thickening Personal history of nicotine dependence Pulmonary nodules/lesions, multiple Worsening functional endurance COPD, severe Hypertension, essential Family History Mother COPD (chronic obstructive pulmonary disease) Other Substance use disorder Social History Housing: Apartment Alcohol intake: current Alcohol intake frequency: does not drink Patient Tobacco Use Status: Former Tobacco user (5 years ago ) Quit Date: 2014 Tobacco use type: Cigarette Years Smoked: (onset 14yo, 1ppd x 50yrs, 50pyh - quit ~2014) e-Cigarette/Vaping Use: Never Used service: No Current occupational status: retired Cognitive needs: No Hearing needs: No Vision needs: Yes Review of Systems Const All systems reviewed & are unremarkable except as noted in HPI and below Eyes Reports no additional complaints ENT Reports no additional complaints Card Denies chest pain, Denies irregular heart rhythm, Reports leg edema and Reports dyspnea on exertion Resp Reports as per HPI and Reports dyspnea on exertion GI Reports no additional complaints Reports no additional complaints Musc Reports muscle weakness (GENERAL BODY WEAKNESS AND POOR ENDURANCE) Skin/Breast Reports system reviewed and no additional complaints, except as documented Neuro Reports no additional complaints Psych Reports anxiety (MILD) Endo Reports no additional complaints Rian/Lymph Reports no additional complaints Aller/Immun Reports no additional complaints Physical Exam Vital Signs: Last Vital Signs Pulse 62 09/17/23 10:33 BP 120/72 09/17/23 10:33 Pulse Ox 92 09/17/23 10:33 Oxygen Delivery Method Room Air 09/17/23 10:33 BMI result Body Mass Index 25.2 Const General: comfortable (BUT OBVIOUSLY SHORT OF BREATH ON WALKING EVEN IN THE EXAM ROOM), no acute distress, alert and awake Orientation/consciousness: patient oriented x3 HEENT Head: Yes normal to inspection General nose exam: No nasal polyps present and No nasal discharge present Face and sinus: Yes sinuses nontender Mouth: oropharynx normal Throat: Yes posterior oropharynx normal Eyes General: appearance normal, both eyes and all related structures Neck Neck: Yes normal visual inspection, Yes no lymphadenopathy, Yes trachea midline and Yes no JVD Thyroid: Thyroid normal Chest Chest palpation & inspection: normal inspection of the chest, normal palpation of entire chest wall and no tenderness Resp Other: PERCUSSION NOTE RESONANT. BREATH SOUNDS ARE VERY DISTANT WITH PROLONGED EXPIRATORY PHASE. NO AUDIBLE WHEEZES CREPS OR RHONCHI. Cardio Palpation: normal PMI Rate: regular rate Rhythm: regular rhythm Heart sounds: no gallops and no murmurs GI Palpation (GI): Soft to palpation, nontender, No hepatosplenomegaly present and no masses Auscultation: normal bowel sounds Back/Spine/Pelvis Thoracic/Lumbar Spine: thoracic and lumbar spine normal to inspection Skin General skin exam: no rashes or lesions noted Neuro General: patient oriented x3 and no focal motor deficits Cranial nerves: Yes CN's II-XII intact bilaterally Extrem General: Yes normal to inspection, Yes no clubbing, cyanosis or edema and Yes no calf tenderness Psych Appearance: grossly normal Speech and movement: Normal speech and movement present Assessment & Plan Assessment & Plan (1) COPD, severe: Comment: COPD IS ACTUALLY VERY SEVERE, FORTUNATELY SHE IS STAYING VERY STABLE. PATIENT IS UP TO DATE WITH HER VACCINATIONS. Code(s): J44.9 - Chronic obstructive pulmonary disease, unspecified Plan: [place]: TRELEGY ELLIPTA 1 INHALATION DAILY ALBUTEROL HFA 2 PUFFS Q 4-6 HOURS ONLY P.R.N. SCRIPTS ARE RENEWED. (2) Pulmonary nodules/lesions, multiple: Comment: Patient had LDCT scan in September2022, has small bilateral pulmonary nodules, benign, stage II. Code(s): R91.8 - Other nonspecific abnormal finding of lung field Plan: She will be getting Annual low-dose CT scan , for lung screening. (3) Personal history of nicotine dependence: Comment: (Former smoker, onset 14, 1ppd x 50yrs, quit ~2014) Code(s): Z87.891 - Personal history of nicotine dependence Plan: HAS NO INTENTION TO GO BACK TO SMOKING Plan *. PATIENT DISCUSSED ABOUT POSSIBLE USE OF OXYGEN BOOST CANISTERS , BEFORE SHE DOES ANY PHYSICAL WORK. I EXPLAINED TO HER THAT SHE REALLY DOES NOT NEED TO USE OXYGEN, BUT IF SHE WANTS TO USE A BOOSTER THAT IS FINE. Coding Level of Care Code Est Pt Level 3 (71982) Diagnoses COPD, severe J44.9 Pulmonary nodules/lesions, multiple R91.8 Personal history of nicotine dependence Z87.891
== END 2023-09-17 11:03 | disposition home or self-care (01) ==
PROVIDERS: PCP Internal Medicine; Visit Provider Internal Medicine
DX: J44.9 Chronic obstructive pulmonary disease, unspecified (principal); R91.8 Other nonspecific abnormal finding of lung field; Z87.891 Personal history of nicotine dependence
CPT/HCPCS: 99213

== ENCOUNTER → 2023-09-17 10:11 | Outpatient (BNVA) | payer OTHER, SELFPAY | PROVIDERS: PCP Internal Medicine; Visit Provider Internal Medicine | DX: J44.9 Chronic obstructive pulmonary disease, unspecified (principal); R91.8 Other nonspecific abnormal finding of lung field; Z87.891 Personal history of nicotine dependence | CPT/HCPCS: 99212 ==

== ENCOUNTER 2024-03-26 09:40 | Outpatient (REF) | payer OTHER, SELFPAY ==
[2024-03-26 11:08] LABS: MANUAL DIFF FLAG NO
[2024-03-26 11:10] LABS: Basophils Absolute Auto 0.1 X10*3/uL (0.0-0.2); Basophils Percent Auto 0.8 % (0-2); Eosinophils Absolute Auto 0.6 X10*3/uL (0.0-0.4); Eosinophils Percent Auto 8.3 % (0-4); Hematocrit 41.5 % (37.0-47.0); Hemoglobin 13.9 g/dl (12.0-16.0); Imm Gran Abs Auto 0.02 X10*3/uL (0.00-0.03); Imm Gran Pct Auto 0.3 % (0.0-0.4); Lymphocytes Absolute Auto 1.8 X10*3/uL (1.2-4.9); Lymphocytes Percent Auto 24.7 % (20-40); Mean Corpuscular HGB Conc 33.5 g/dl (31.0-35.0); Mean Corpuscular Hemoglobin 31.4 pg (27.0-33.0); Mean Corpuscular Volume 93.7 fL (80.0-98.0); Monocytes Absolute Auto 0.5 X10*3/uL (0.1-1.2); Monocytes Percent Auto 6.4 % (2-11); Neutrophils Absolute Auto 4.4 x10*3/uL (2.0-8.3); Neutrophils Percent Auto 59.5 % (45-73); Platelet Count 238 X10*3/uL (160-400); Red Blood Count 4.43 X10*6/uL (4.20-5.50); Red Cell Distribution Width 11.9 % (11.0-16.0); White Blood Count 7.4 X10*3/uL (4.8-10.8)
[2024-03-26 11:22] LABS: Estimated Average Glucose 97 mg/dL; Hemoglobin A1C 106.4746 umol/L; Total Hemoglobin (HGBA1C) 3413.7845 umol/L
[2024-03-26 11:47] LABS: Alanine Aminotransferase 15 U/L (0-31); Albumin Level 4.2 g/dL (3.5-5.0); Alkaline Phosphatase 80 U/L (39-117); Anion Gap 13 (12-20); Aspartate Amino Transferase 24 U/L (5-31); Bilirubin Total 0.6 mg/dL (0.0-1.0); Blood Urea Nitrogen 22 mg/dL (9-16); Calcium 9.8 mg/dL (8.4-10.2); Carbon Dioxide 28 mmol/L (22-29); Chloride 106 mmol/L (96-108); Estimated Glomerular Filt Rate > 60; Glucose Random 94 mg/dL (60-115); Potassium 4.5 mmol/L (3.3-5.1); Sodium 142 mmol/L (135-145)
[2024-03-29 12:59] LABS: LDL Cholesterol Direct 111 mg/dL (<100)
== END 2024-03-26 09:41 | disposition home or self-care (01) ==
LOC: HO.HMGCLDS 09:40
PROVIDERS: PCP Internal Medicine; Visit Provider Internal Medicine
DX: R73.01 Impaired fasting glucose (principal); I25.10 Atherosclerotic heart disease of native coronary artery without angina pectoris; R79.89 Other specified abnormal findings of blood chemistry; I10 Essential (primary) hypertension; J44.9 Chronic obstructive pulmonary disease, unspecified; Z91.09 Other allergy status, other than to drugs and biological substances
CPT/HCPCS: 36415; 80053; 83036; 83721; 85025

== ENCOUNTER 2024-04-13 13:54 | Outpatient (AMB) | payer OTHER, SELFPAY ==
[2024-04-13 14:01] VITALS: BP 122/72; PULSE 75; O2SAT 93; BMI 20.6
--- NOTE | 2024-04-13 14:01 | MHC.PC.OV ---
Vital Signs 04/13/24 14:01 Height 5 ft 3 in Weight 116 lb 4 oz BMI 20.6 BP 122/72 Blood Pressure Location Rt brachial Position Sitting Pulse 75 Pulse Source Pulse Oximeter Pulse Oximetry (%) 93 Oxygen Delivery Method Room Air Intake Visit Reasons: Rsch from 03/02 PE Allergies perflutren Adverse Reaction (Verified 04/13/24 14:04) Back Pain Medication List - Last Reconciled 04/13/24 by Keny Alves MD albuterol sulfate 90 mcg/actuation 2 puffs PO Q4-6H PRN 30 days atenolol 75 mg (1.5 x 50 mg) PO DAILY 90 days cholecalciferol (vitamin D3) 50 mcg PO DAILY uxudrfpbvoa-funbtnsnj-kwryauvr 100-62.5-25 mcg (Trelegy Ellipta) 1 ea PO DAILY pegvyudi-geu-qgys-FA-vit K-lut 8 mg iron-400 mcg-50 mcg (Centrum Silver Women) 1 tab PO DAILY Tobacco use date assessed: 04/13/24 Fall risk assessment: No Falls in past year Last assessed Fall Risk: 04/13/24 Dental Screening Dental Screen Date: 04/13/24 Did you have a dental visit in the last 12 months?: Yes Did you have a dental problem in the last 6 months where you did not have access to dental care?: No Was dental information given to patient?: Patient has dentist HPI Rsch from 03/02 HPI Details 74-year-old female came in today for physical examination Only medication she is taking from this office is atenolol Tolerating medication, blood pressure is stable Patient also sees Dr. Barfield credit risk specialist for the management of COPD She has seen Cardiology last year and had workup done which was negative Patient has declined to do mammogram Declined to do Pap smear Declined to do colonoscopy Labs done recently reviewed Patient will return in 1 year for physical examination Labs needed before visit Prevnar 20 vaccine was given today Patient will get flu and COVID vaccine from pharmacy [facility] Medical History Esophageal thickening Personal history of nicotine dependence Pulmonary nodules/lesions, multiple Worsening functional endurance COPD, severe Hypertension, essential Family History Mother COPD (chronic obstructive pulmonary disease) Other Substance use disorder Social History Housing: Apartment Alcohol intake: current Alcohol intake frequency: does not drink Patient Tobacco Use Status: Former Tobacco user (5 years ago ) Tobacco use type: Cigarette Years Smoked: (onset 14yo, 1ppd x 50yrs, 50pyh - quit ~2014) e-Cigarette/Vaping Use: Never Used service: No Current occupational status: retired Cognitive needs: No Hearing needs: No Vision needs: Yes Questionnaire PHQ-9 Over the last 2 weeks, how often have you been bothered by any of the following problems? 1. Little interest or pleasure in doing things: not at all 2. Feeling down, depressed, or hopeless: not at all 3. Trouble falling or staying asleep, or sleeping too much: not at all 4. Feeling tired or having little energy: not at all 5. Poor appetite or overeating: not at all 6. Feeling bad about yourself - or that you are a failure or have let yourself or your family down: not at all 7. Trouble concentrating on things, such as reading the newspaper or watching television: not at all 8. Moving or speaking so slowly that other people could have noticed. Or the opposite - being so fidgety or restless that you have been moving around a lot more than usual: not at all 9. Thoughts that you would be better off or of hurting yourself in some way: not at all Total score: 0 Depression Screening Interpretation: Negative Depression Screening Done: Yes 11203 - PHQ-9 Billing: Yes Source: Developed by Drs. Dereje Alvarado, Tania Baptiste, Junior Espinoza and colleagues, with an educational susie from [employer]. Thrive Questionnaire Date Thrive assessed: 04/13/24 I am a: Patient What is your living situation today?: I have a steady place to live Within the past 12 months, did the food you bought not last and you didn't have the money to get more?: Sometimes True Within the past 12 months, did you worry whether your food would run out before you got money to buy more?: Sometimes True Do you have trouble paying for medicines?: No Do you have trouble getting transportation to medical appointments?: No Do you have trouble paying your heating and electricity bill?: No Do you have trouble taking care of your child, family member or friend?: No Do you have trouble with day-to-day activities such as bathing, preparing meals, shopping, managing finances, etc.?: No Are you currently unemployed and looking for a job?: No Are you interested in more education?: No Please select the resources that you would like help with: None Currently or been in a relationship where the following occur: No concerns reported THRIVE Score: 2 AUDIT C Alcohol Use Questionnaire (AUDIT-C) 1. How often do you have a drink containing alcohol?: Never 3. How often do you have six or more drinks on one occasion?: Never Total Score: 0 Score Reviewed/Action Taken: Yes DONALD-7 AMB Questionnaire DONALD-7 Date DONALD - 7 assessed: 04/13/24 Feeling nervous, anxious, or on edge: 0 = Not at all Not being able to stop or control worryin = Not at all Worrying too much about different things: 0 = Not at all Trouble relaxin = Not at all Being so restless that it is hard to sit still: 0 = Not at all Becoming easily annoyed or irritable: 0 = Not at all Feeling afraid as if something awful might happen: 0 = Not at all Total DONALD-7 score (0-4 normal; 5-9 mild; 10-14 moderate; 15-21 severe): 0 Source: Developed by Drs. Dereje Alvarado, Tania Baptiste, Junior Espinoza and colleagues, with an educational susie from [employer]. DONALD-7 Assessment Billing DONALD-7 Assessment Tool: DONALD-7 Assessment 48147 Review of Systems Const Denies chills, Denies fever(s) and Denies headache(s) Eyes Denies blurry vision ENT Denies headache(s), Denies nasal discharge, Denies nasal obstruction, Denies odynophagia and Denies sinus pain Card Denies chest pain at rest and Denies chest pain with activity Resp Denies cough and Denies hemoptysis GI Denies diarrhea, Denies odynophagia, Denies vomiting and Denies hematemesis Reports as per HPI Musc Denies abnormal gait Skin/Breast Reports as per HPI Neuro Denies Neuro-related abnormal movements, Denies Abnormal speech present, Denies abnormal gait, Denies headache(s) and Denies Sensory deficit (Neuro) Psych Denies mood swings and Denies paranoia Endo Reports as per HPI Rian/Lymph Reports as per HPI Aller/Immun Reports as per HPI Physical exam (Primary Care) Vital Signs: Last Vital Signs Pulse 75 04/13/24 14:01 BP 122/72 04/13/24 14:01 Pulse Ox 93 04/13/24 14:01 Oxygen Delivery Method Room Air 04/13/24 14:01 BMI result Body Mass Index 20.6 Tobacco/Smoking Status: Tobacco use Status Tobacco use date assessed 04/13/24 04/13/24 14:05 Patient Tobacco Use Status Former Tobacco user (5 years 04/13/24 14:05 ago ) Tobacco use type Cigarette 04/13/24 14:05 e-Cigarette/Vaping Use Never Used 04/13/24 14:05 PHQ-9: PHQ-9 Score PHQ-9: Total score 0 04/13/24 14:38 Depression Screening Interpretation: Negative Thrive Assessment: Date of Thrive Assessment Date Thrive assessed 04/13/24 04/13/24 14:05 Currently or been in a relationship where the following occur: No concerns reported Const General: cooperative, comfortable and no acute distress Orientation/consciousness: patient oriented x3 HENMT Head: Yes normocephalic and Yes atraumatic Eyes General: appearance normal, both eyes and all related structures Pupils: Equal, round and reactive pupils present EOM: EOMs intact bilaterally Neck Neck: Yes supple and No lymphadenopathy Thyroid: Thyroid normal Lymphatic: no lymphadenopathy noted Resp Effort & Inspection: normal respiratory effort and able to speak in complete sentences Auscultation: clear to auscultation bilaterally Cardio Heart sounds: S1 normal heart sound present and S2 normal heart sound present GI Palpation (GI): Soft to palpation and nontender Auscultation: normal bowel sounds General: Yes no CVA tenderness Back/Spine/Pelvis Back: no CVA tenderness Skin General skin exam: elasticity normal and turgor normal Neuro General: patient oriented x3 and gait normal Cranial nerves: Yes Equal, round and reactive pupils present Speech: No Abnormal speech present Sensory Exam: No Sensory deficit (Neuro) Coordination: tandem gait normal and Romberg test negative Extrem General: Yes normal exam except as noted and No edema Immunizations pneumoc 20-iraida conj-dip cr(PF) 0.5 mL IM syringe Performing Provider: Keny Alves MD Performing Location[place] [facility] Administered by: Ze España CMA on 04/13/24 14:37 Dose Route Admin Location Dispensed Lot Number Expiration Date NDC Stamping Machine Operator 0.5 mL IM Left Deltoid 0.5 mL [id number] 06/03/25 5316-9218-21 WYETH/PFIZER VIS Given Date VIS Provided VIS Publication Date 04/13/24 Single Vaccine 21 Eligibility Eligibility Date Funding Source Not [facility] Eligible 04/13/24 Private Coding Level of Care Code Est Pt Level 3 (62105) Est Pt Prev Care >65y(94436) Diagnoses Encounter for general adult medical examination with abnormal findings Z00.01 Hypertension, essential I10 Arthritis, multiple joint involvement M12.9 Impaired fasting blood sugar R73.01 COPD, severe J44.9 Additional Codes DONALD-7 Assessment Billing - DONALD-7 Assessment Tool: DONALD-7 Assessment 13036 ([id number]) Assessment & Plan Assessment & Plan (1) Encounter for general adult medical examination with abnormal findings: Code(s): Z00.01 - Encounter for general adult medical examination with abnormal findings Category: Medical (2) Hypertension, essential: Code(s): I10 - Essential (primary) hypertension Category: Medical (3) Arthritis, multiple joint involvement: Code(s): M12.9 - Arthropathy, unspecified Category: Medical (4) Impaired fasting blood sugar: Code(s): R73.01 - Impaired fasting glucose Category: Medical (5) COPD, severe: Comment: COPD IS ACTUALLY VERY SEVERE, FORTUNATELY SHE IS STAYING VERY STABLE. Code(s): J44.9 - Chronic obstructive pulmonary disease, unspecified Category: Medical Plan 74-year-old female came in today for physical examination Only medication she is taking from this office is atenolol Tolerating medication, blood pressure is stable Patient also sees Dr. Barfield credit risk specialist for the management of COPD She has seen Cardiology last year and had workup done which was negative Patient has declined to do mammogram Declined to do Pap smear Declined to do colonoscopy Labs done recently reviewed Patient will return in 1 year for physical examination Labs needed before visit Prevnar 20 vaccine was given today Patient will get flu and COVID vaccine from pharmacy Orders: Orders Pneumococcal 20 Immunization Today Z23 - Encounter for immunization Medications: Refilled atenolol 75 mg (1.5 x 50 mg) PO DAILY 135 tabs 3RF 90 days
== END 2024-04-13 15:45 | disposition home or self-care (01) ==
LOC: HO.HMCC 13:55
PROVIDERS: PCP Internal Medicine; Visit Provider Internal Medicine
DX: Z00.01 Encounter for general adult medical examination with abnormal findings (principal); I10 Essential (primary) hypertension; J44.9 Chronic obstructive pulmonary disease, unspecified; M12.9 Arthropathy, unspecified; R73.01 Impaired fasting glucose; Z23 Encounter for immunization

== ENCOUNTER → 2024-04-13 13:54 | Outpatient (BNVA) | payer OTHER, SELFPAY | PROVIDERS: PCP Internal Medicine; Visit Provider Internal Medicine | DX: Z00.01 Encounter for general adult medical examination with abnormal findings (principal); Z23 Encounter for immunization; I10 Essential (primary) hypertension; M12.9 Arthropathy, unspecified; R73.01 Impaired fasting glucose; J44.9 Chronic obstructive pulmonary disease, unspecified | CPT/HCPCS: 90471; 90677; 96127; 99397 ==

== ENCOUNTER 2024-04-19 09:35 | Outpatient (AMB) | payer OTHER, MEDICAID, SELFPAY ==
[2024-04-19 09:40] VITALS: BP 134/80; PULSE 78; O2SAT 94; BMI 21.1
--- NOTE | 2024-04-19 09:40 | A.OFFVIS_ITS ---
Vital Signs 04/19/24 09:40 Height 5 ft 3 in Weight 119 lb 0.794 oz BMI 21.1 BP 134/80 Blood Pressure Location Rt brachial Position Sitting Pulse 78 Pulse Source Pulse Oximeter Pulse Oximetry (%) 94 Oxygen Delivery Method Room Air Intake Visit Reasons: COPD Bass Mechanism Maker Required: No Satin Finisher: Satin Finisher offered & declined Accompanied by: Self / Same As Patient Allergies perflutren Adverse Reaction (Verified 04/19/24 09:56) Back Pain Medication List - Last Reconciled 04/19/24 by Ed Barfield MD albuterol sulfate 90 mcg/actuation 2 puffs PO Q4-6H PRN 30 days atenolol 75 mg (1.5 x 50 mg) PO DAILY 90 days cholecalciferol (vitamin D3) 50 mcg PO DAILY mrlxhflmxup-gsapvtwoe-obbfwwil 100-62.5-25 mcg (Trelegy Ellipta) 1 ea PO DAILY fqylgrpr-iqm-xrma-FA-vit K-lut 8 mg iron-400 mcg-50 mcg (Centrum Silver Women) 1 tab PO DAILY Do you need a note to return to daycare/school/sports/work: No HPI HPI COPD: Details: Julianne 74 years old female past smoker, has advanced chronic obstructive pulmonary disease, she is here for 6 months follow-up. Has been doing very well and she is very happy with her current status. She remains fully active, sleeps good, has occasional sneezing attacks, has very little cough or wheezing. Hardly needs to use the rescue inhaler. She is up to date with her vaccines, and not prone to get respiratory infections, PFSH Medical History Esophageal thickening Personal history of nicotine dependence Pulmonary nodules/lesions, multiple Worsening functional endurance COPD, severe Hypertension, essential Family History Mother COPD (chronic obstructive pulmonary disease) Other Substance use disorder Social History Housing: Apartment Alcohol intake: current Alcohol intake frequency: does not drink Patient Tobacco Use Status: Former Tobacco user Tobacco use type: Cigarette Years Smoked: (onset 14yo, 1ppd x 50yrs, 50pyh - quit ~2014) e-Cigarette/Vaping Use: Never Used service: No Current occupational status: retired Cognitive needs: No Hearing needs: No Vision needs: Yes Review of Systems Const All systems reviewed & are unremarkable except as noted in HPI and below Eyes Reports no additional complaints ENT Reports no additional complaints Card Denies chest pain, Denies irregular heart rhythm, Reports leg edema and Reports dyspnea on exertion Resp Reports as per HPI and Reports dyspnea on exertion GI Reports no additional complaints Reports no additional complaints Musc Reports muscle weakness (GENERAL BODY WEAKNESS AND POOR ENDURANCE) Skin/Breast Reports system reviewed and no additional complaints, except as documented Neuro Reports no additional complaints Psych Reports anxiety (MILD) Endo Reports no additional complaints Rian/Lymph Reports no additional complaints Aller/Immun Reports no additional complaints Physical Exam Vital Signs: Last Vital Signs Pulse 78 04/19/24 09:40 BP 134/80 04/19/24 09:40 Pulse Ox 94 04/19/24 09:40 Oxygen Delivery Method Room Air 04/19/24 09:40 BMI result Body Mass Index 21.1 Const General: comfortable (BUT OBVIOUSLY SHORT OF BREATH ON WALKING EVEN IN THE EXAM ROOM), no acute distress, alert and awake Orientation/consciousness: patient oriented x3 HEENT Head: Yes normal to inspection General nose exam: No nasal polyps present and No nasal discharge present Face and sinus: Yes sinuses nontender Mouth: oropharynx normal Throat: Yes posterior oropharynx normal Eyes General: appearance normal, both eyes and all related structures Neck Neck: Yes normal visual inspection, Yes no lymphadenopathy, Yes trachea midline and Yes no JVD Thyroid: Thyroid normal Chest Chest palpation & inspection: normal inspection of the chest, normal palpation of entire chest wall and no tenderness Resp Other: PERCUSSION NOTE RESONANT. BREATH SOUNDS ARE VERY DISTANT WITH PROLONGED EXPIRATORY PHASE. NO AUDIBLE WHEEZES CREPS OR RHONCHI. Cardio Palpation: normal PMI Rate: regular rate Rhythm: regular rhythm Heart sounds: no gallops and no murmurs GI Palpation (GI): Soft to palpation, nontender, No hepatosplenomegaly present and no masses Auscultation: normal bowel sounds Back/Spine/Pelvis Thoracic/Lumbar Spine: thoracic and lumbar spine normal to inspection Skin General skin exam: no rashes or lesions noted Neuro General: patient oriented x3 and no focal motor deficits Cranial nerves: Yes CN's II-XII intact bilaterally Extrem General: Yes normal to inspection, Yes no clubbing, cyanosis or edema and Yes no calf tenderness Psych Appearance: grossly normal Speech and movement: Normal speech and movement present Assessment & Plan Assessment & Plan (1) COPD, severe: Comment: COPD IS ACTUALLY VERY SEVERE, FORTUNATELY SHE IS STAYING VERY STABLE. NO INFECTION OR EXACERBATIONS IN THE LAST 6 MONTHS. Code(s): J44.9 - Chronic obstructive pulmonary disease, unspecified Category: Medical Plan: CONTINUE TO USE TRELEGY ELLIPTA 1 INHALATION DAILY. ALBUTEROL HFA 1 OR 2 PUFFS Q 4-6 HOURS ONLY P.R.N. (2) Pulmonary nodules/lesions, multiple: Comment: Patient had LDCT scan in September2022, has small bilateral pulmonary nodules, benign, stage II. Code(s): R91.8 - Other nonspecific abnormal finding of lung field Category: Medical Plan: PATIENT STILL IN ANNUAL LUNG SCREENING PROGRAM. Coding Level of Care Code Est Pt Level 3 (57356) Diagnoses COPD, severe J44.9 Pulmonary nodules/lesions, multiple R91.8
== END 2024-04-19 10:04 | disposition home or self-care (01) ==
LOC: HO.HPS 09:35
PROVIDERS: PCP Internal Medicine; Visit Provider Internal Medicine
DX: J44.9 Chronic obstructive pulmonary disease, unspecified (principal); R91.8 Other nonspecific abnormal finding of lung field
CPT/HCPCS: 99213

== ENCOUNTER → 2024-04-19 09:35 | Outpatient (BNVA) | payer OTHER, MEDICAID, SELFPAY | PROVIDERS: PCP Internal Medicine; Visit Provider Internal Medicine | DX: J44.9 Chronic obstructive pulmonary disease, unspecified (principal); R91.8 Other nonspecific abnormal finding of lung field | CPT/HCPCS: 99212 ==

== ENCOUNTER 2024-11-30 13:05 | Outpatient (AMB) | payer MEDICARE, MEDICAID, SELFPAY ==
[2024-11-30 13:31] VITALS: BP 110/72; PULSE 65; O2SAT 93; BMI 22.6
--- NOTE | 2024-11-30 13:31 | A.OFFVIS_ITS ---
Vital Signs 11/30/24 13:31 Height 5 ft 3 in Weight 127 lb 13.89 oz BMI 22.6 BP 110/72 Blood Pressure Location Lt brachial Position Sitting Pulse 65 Pulse Source Pulse Oximeter Pulse Oximetry (%) 93 Oxygen Delivery Method Room Air Intake Visit Reasons: copd Intake Note: pt is here for follow up and states she is doing well, but humidity is tuff, she is exercising and feels good. Powder Room Attendant Required: No Allergies perflutren Adverse Reaction (Verified 11/30/24 13:50) Back Pain Medication List - Last Reconciled 11/30/24 by Ed Barfield MD albuterol sulfate 90 mcg/actuation 2 puffs PO Q4-6H PRN 30 days atenolol 75 mg (1.5 x 50 mg) PO DAILY 90 days cholecalciferol (vitamin D3) 50 mcg PO DAILY vcljkeaobbl-owolwokok-fsodeubp 100-62.5-25 mcg (Trelegy Ellipta) 1 ea PO DAILY dxlrevgk-ypb-sftq-FA-vit K-lut 8 mg iron-400 mcg-50 mcg (Centrum Silver Women) 1 tab PO DAILY Do you need a note to return to daycare/school/sports/work: No HPI HPI copd: Details: 74 years old very pleasant female a case of severe obstructive airway disorder, who quit smoking since 4 years ago. Now uses Trelegy Ellipta 1 inhalation daily. Has not required use of albuterol for a few months at a time. She has been free of any acute respiratory infection. She remains very active does home exercises. Does get some shortness of breath on walking up hill but mostly remains very stable. [facility] Medical History Esophageal thickening Personal history of nicotine dependence Pulmonary nodules/lesions, multiple Worsening functional endurance COPD, severe Hypertension, essential Family History Mother COPD (chronic obstructive pulmonary disease) Other Substance use disorder Social History Housing: Apartment Alcohol intake: current Alcohol intake frequency: does not drink Patient Tobacco Use Status: Former Tobacco user Tobacco use type: Cigarette Years Smoked: (onset 14yo, 1ppd x 50yrs, 50pyh - quit ~2014) e-Cigarette/Vaping Use: Never Used service: No Current occupational status: retired Cognitive needs: No Hearing needs: No Vision needs: Yes Review of Systems Const All systems reviewed & are unremarkable except as noted in HPI and below Eyes Reports no additional complaints ENT Reports no additional complaints Card Denies chest pain, Denies irregular heart rhythm, Reports leg edema and Reports dyspnea on exertion Resp Reports as per HPI and Reports dyspnea on exertion GI Reports no additional complaints Reports no additional complaints Musc Reports muscle weakness (GENERAL BODY WEAKNESS AND POOR ENDURANCE) Skin/Breast Reports system reviewed and no additional complaints, except as documented Neuro Reports no additional complaints Psych Reports anxiety (MILD) Endo Reports no additional complaints Rian/Lymph Reports no additional complaints Aller/Immun Reports no additional complaints Physical Exam Vital Signs: Last Vital Signs Pulse 65 11/30/24 13:31 BP 110/72 11/30/24 13:31 Pulse Ox 93 11/30/24 13:31 Oxygen Delivery Method Room Air 11/30/24 13:31 BMI result Body Mass Index 22.6 Const General: comfortable (BUT OBVIOUSLY SHORT OF BREATH ON WALKING EVEN IN THE EXAM ROOM), no acute distress, alert and awake Orientation/consciousness: patient oriented x3 HEENT Head: Yes normal to inspection General nose exam: No nasal polyps present and No nasal discharge present Face and sinus: Yes sinuses nontender Mouth: oropharynx normal Throat: Yes posterior oropharynx normal Eyes General: appearance normal, both eyes and all related structures Neck Neck: Yes normal visual inspection, Yes no lymphadenopathy, Yes trachea midline and Yes no JVD Thyroid: Thyroid normal Chest Chest palpation & inspection: normal inspection of the chest, normal palpation of entire chest wall and no tenderness Resp Other: PERCUSSION NOTE RESONANT. BREATH SOUNDS ARE VERY DISTANT WITH PROLONGED EXPIRATORY PHASE. NO AUDIBLE WHEEZES CREPS OR RHONCHI. Cardio Palpation: normal PMI Rate: regular rate Rhythm: regular rhythm Heart sounds: no gallops and no murmurs GI Palpation (GI): Soft to palpation, nontender, No hepatosplenomegaly present and no masses Auscultation: normal bowel sounds Back/Spine/Pelvis Thoracic/Lumbar Spine: thoracic and lumbar spine normal to inspection Skin General skin exam: no rashes or lesions noted Neuro General: patient oriented x3 and no focal motor deficits Cranial nerves: Yes CN's II-XII intact bilaterally Extrem General: Yes normal to inspection, Yes no clubbing, cyanosis or edema and Yes no calf tenderness Psych Appearance: grossly normal Speech and movement: Normal speech and movement present Assessment & Plan Assessment & Plan (1) COPD, severe: Comment: COPD IS ACTUALLY VERY SEVERE, FORTUNATELY SHE IS STAYING VERY STABLE. NO INFECTION OR EXACERBATIONS IN THE LAST 6 MONTHS. Code(s): J44.9 - Chronic obstructive pulmonary disease, unspecified Category: Medical Plan: Continue to use Trelegy Ellipta 1 inhalation daily (2) Pulmonary nodules/lesions, multiple: Comment: Patient had LDCT scan in September2022, has small bilateral pulmonary nodules, benign, stage II. Code(s): R91.8 - Other nonspecific abnormal finding of lung field Category: Medical Plan: As she quit smoking in 2014. I do not think she needs any further annual screening. Coding Level of Care Code Est Pt Level 3 (93440) Diagnoses COPD, severe J44.9 Pulmonary nodules/lesions, multiple R91.8
--- OUTSIDE RECORDS SUMMARY | 2024-11-30 14:59 | XMS_ITS | Encounter Summary ---
Author Organization [employer] Address [address] [place] [address] Care Team Providers Care Automation Control Integrator Name Role Phone Unavailable Primary Care Provider Unavailabl e Reason for Visit * Reason Onset Date Comments New patient 01/29/2023 Encounter Details Date Type Department Care Team (Late st Contact Info) Description 01/29/2023 Telephone [facility] MEDICINE [address], [place] [id number] Blaine Hubbard MD [address], [place] [phone] New patient Social History Tobacco Use Types Packs/Day Years Used Date Smoking Tobacco: Former Cigarettes Smokeless Tobacco: Never Comments Unknown Sex and Gender Information Value Date Recorded Sex Assigned at Female 04/14/2022 10:36 AM EDT Legal Sex Female 10:36 AM EDT Gender Identity Female 09/05/2022 8:30 AM EDT Sexual Orientation Don't know 09/05/2022 8: 30 AM EDT documented as of this encounter Miscellaneous Notes * Telephone Encounter - Gina Hall - 03/19/2023 11:15 AM EDT Tc to pt , to offer HAND FLATWORK FINISHER Appt, pt states is not interested at the time for Daycare Assistant with Facility or has found other Facility. Advised if change of mind to please give facility a call at [phone] * Telephone Encounter - Gina Hall - 01/29/2023 10:47 AM EDT Pt has been transfer over to wait list for HAND FLATWORK FINISHER. EFFECTIVE SINCE 01/29/2023 documented in this encounter Plan of Treatment Not on file documented as of this encounter Visit Diagnoses Not on filedocumented in this encounter
== END 2024-11-30 14:35 | disposition home or self-care (01) ==
LOC: HO.HPS 13:06
PROVIDERS: PCP Internal Medicine; Visit Provider Internal Medicine
DX: J44.9 Chronic obstructive pulmonary disease, unspecified (principal); R91.8 Other nonspecific abnormal finding of lung field
CPT/HCPCS: 99213

== ENCOUNTER → 2024-11-30 13:05 | Outpatient (BNVA) | payer MEDICARE, MEDICAID, SELFPAY | PROVIDERS: PCP Internal Medicine; Visit Provider Internal Medicine | DX: J44.9 Chronic obstructive pulmonary disease, unspecified (principal); R91.8 Other nonspecific abnormal finding of lung field | CPT/HCPCS: 99212 ==

== ENCOUNTER 2025-05-26 10:52 | Outpatient (REF) | payer MEDICARE, MEDICAID, SELFPAY ==
[2025-05-26 13:54] LABS: MANUAL DIFF FLAG NO
[2025-05-26 14:02] LABS: Hematocrit 41.8 % (37.0-47.0); Hemoglobin 13.5 g/dl (12.0-16.0); Imm Gran Abs Auto 0.03 X10*3/uL (0.00-0.03); Imm Gran Pct Auto 0.4 % (0.0-0.4); Lymphocytes Absolute Auto 1.5 X10*3/uL (1.2-4.9); Mean Corpuscular HGB Conc 32.3 g/dl (31.0-35.0); Mean Corpuscular Hemoglobin 30.6 pg (27.0-33.0); Mean Corpuscular Volume 94.8 fL (80.0-98.0); NRBC Abs Auto 0.000 X10*3/uL (0.0-0.012); NRBC Pct Auto 0.0 /100WBC (0.0-0.2); Platelet Count 248 X10*3/uL (160-400); Red Blood Count 4.41 X10*6/uL (4.20-5.50); White Blood Count 8.1 X10*3/uL (4.8-10.8)
[2025-05-26 14:55] LABS: Alanine Aminotransferase 20 U/L (0-31); Albumin Level 4.3 g/dL (3.5-5.0); Alkaline Phosphatase 86 U/L (39-117); Anion Gap 14 (12-20); Aspartate Amino Transferase 30 U/L (5-31); Blood Urea Nitrogen 19 mg/dL (9-16); Calcium 9.9 mg/dL (8.4-10.2); Carbon Dioxide 28 mmol/L (22-29); Chloride 104 mmol/L (96-108); Estimated Glomerular Filt Rate > 60; Potassium 3.9 mmol/L (3.3-5.1); Sodium 142 mmol/L (135-145); Total Protein 7.2 g/dL (6.5-8.0)
[2025-06-01 05:53] LABS: Vitamin D 25-OH, D2 <4 ng/mL; Vitamin D 25-OH, D3 61 ng/mL; Vitamin D 25-OH, Total 61 ng/mL (30-100)
== END 2025-05-26 10:53 | disposition home or self-care (01) ==
LOC: HO.HMGCLDS 10:52
PROVIDERS: PCP Internal Medicine; Visit Provider Internal Medicine
DX: Z00.01 Encounter for general adult medical examination with abnormal findings (principal); I10 Essential (primary) hypertension; I25.10 Atherosclerotic heart disease of native coronary artery without angina pectoris; I25.84 Coronary atherosclerosis due to calcified coronary lesion; R73.01 Impaired fasting glucose; J44.9 Chronic obstructive pulmonary disease, unspecified
CPT/HCPCS: 36415; 80053; 82306; 83036; 83721; 84443; 85025; 90471; 90715; 96127; 99397

== ENCOUNTER 2025-05-26 10:52 | Outpatient (AMB) | payer MEDICARE, MEDICAID, SELFPAY ==
--- NOTE | 2025-05-26 10:54 | A.OFFPC_ITS ---
Vital Signs 05/26/25 10:56 Height 5 ft 3 in Weight 130 lb BMI 23.0 BP 118/72 Blood Pressure Location Lt brachial Position Sitting Pulse 66 Pulse Source Pulse Oximeter Pulse Oximetry (%) 95 Intake Visit Reasons: Annual PE Medical Science Liaison Required: No Accompanied by: Self / Same As Patient Allergies perflutren Adverse Reaction (Verified 05/26/25 10:57) Back Pain Medication List - Last Reconciled 05/26/25 by Keny Alves MD albuterol sulfate 90 mcg/actuation 2 puffs PO Q4-6H PRN 30 days atenolol 75 mg (1.5 x 50 mg) PO DAILY 30 days cholecalciferol (vitamin D3) 50 mcg PO DAILY tbcmqnkjwaq-zpfeyyqeo-vihuhajc 100-62.5-25 mcg (Trelegy Ellipta) 1 ea PO DAILY lmfhoisk-cfp-ouuh-FA-vit K-lut 8 mg iron-400 mcg-50 mcg (Centrum Silver Women) 1 tab PO DAILY Tobacco use date assessed: 05/26/25 Fall risk assessment: No Falls in past year Last assessed Fall Risk: 05/26/25 Dental Screening Dental Screen Date: 05/26/25 Did you have a dental visit in the last 12 months?: Yes Did you have a dental problem in the last 6 months where you did not have access to dental care?: No Was dental information given to patient?: Patient has dentist HPI HPI Comments History of Present Illness Details History of Present Illness The patient is a 75 year old female presenting for a physical examination. Essential Hypertension: - The patient's blood pressure is well-c ontrolled with a recent reading of 118/72 mmHg. - She has been taking atenolol 75 mg brayan ly but reports she has been taking one and a half tablets. - She reports no longer seeing high bloo d pressure readings. - She has a home blood pressure monitor but it is not working correctly after she dropped it. Chronic Obstructive Pulmonary Disease (COPD): - The patient has a history of severe [place] PD and sees a medicaid specialist. - She uses inhalers prescribed by her lmonologist. - She reports her breathing has good and bad days, often dependent on the weather, with winter being more difficult. - She reports that atenolol does not bot her her breathing. Fall: - The patient recently had a fall over a week ago after tripping on a phone cord. - Her entire lower right leg was bruised , and she was unable to stand on it for any length of time due to swelling, but not pain. - She reports applying ice to the leg. - No bone density scan has been done, so her bone status is unknown. Health Maintenance: - The patient has consistently declined preventive screenings, including colonoscopy, mammogram, and METALIZER evaluation. - She received COVID and flu shots in . - Her last tetanus shot was in 2012. - She is due for updated labs, with the last CBC and metabolic profile performed in March of the previous year. Medical History: - Coronary artery disease - Impaired fasting glucose - Severe Chronic Obstructive Pulmonary D isease - History of Nicotine dependence - Fall over a week ago resulting in a br uised lower leg. Social History: - History of nicotine dependence. - She lives alone. - She tries to limit going out, especial ly in the winter, and consolidates errands into one day. Health Maintenance - The patient declined colonoscopy, mamm ogram, gynecological health evaluation, and breast exam. - Immunizations: Received COVID and flu shots in February; up to date on pneumococcal vaccine; due for tetanus vaccination, which she received today. - Labs: Due for updated labs, including CBC and metabolic profile, which were last done in March of the previous year. - Fall prevention was discussed, includi ng keeping floors clear of cords and clutter. [place] of Care - The patient sees a pulmonary specialis t, , for her COPD and has an upcoming appointment. [facility] Medical History Esophageal thickening Personal history of nicotine dependence Pulmonary nodules/lesions, multiple Worsening functional endurance COPD, severe Hypertension, essential Family History Mother COPD (chronic obstructive pulmonary disease) Other Substance use disorder Social History Housing: Apartment Alcohol intake: current Alcohol intake frequency: does not drink Patient Tobacco Use Status: Former Tobacco user Tobacco use type: Cigarette Years Smoked: (onset 14yo, 1ppd x 50yrs, 50pyh - quit ~2014) e-Cigarette/Vaping Use: Never Used service: No Current occupational status: retired Cognitive needs: No Hearing needs: No Vision needs: Yes Questionnaire PHQ-9 Over the last 2 weeks, how often have you been bothered by any of the following problems? 1. Little interest or pleasure in doing things: not at all 2. Feeling down, depressed, or hopeless: not at all 3. Trouble falling or staying asleep, or sleeping too much: not at all 4. Feeling tired or having little energy: not at all 5. Poor appetite or overeating: not at all 6. Feeling bad about yourself - or that you are a failure or have let yourself or your family down: not at all 7. Trouble concentrating on things, such as reading the newspaper or watching television: not at all 8. Moving or speaking so slowly that other people could have noticed. Or the opposite - being so fidgety or restless that you have been moving around a lot more than usual: not at all 9. Thoughts that you would be better off or of hurting yourself in some way: not at all Total score: 0 Depression Screening Interpretation: Negative Depression Screening Done: Yes 19543 - PHQ-9 Billing: Yes Source: Developed by Drs. Dereje Alvarado, Tania Baptiste, Junior Espinoza and colleagues, with an educational susie from [employer]. Thrive Questionnaire Date Thrive assessed: 05/26/25 I am a: Patient What is your living situation today?: I have a steady place to live Within the past 12 months, did the food you bought not last and you didn't have the money to get more?: Sometimes True Within the past 12 months, did you worry whether your food would run out before you got money to buy more?: Sometimes True Do you have trouble paying for medicines?: No Do you have trouble getting transportation to medical appointments?: No Do you have trouble paying your heating and electricity bill?: No Do you have trouble taking care of your child, family member or friend?: No Do you have trouble with day-to-day activities such as bathing, preparing meals, shopping, managing finances, etc.?: No Are you currently unemployed and looking for a job?: No Are you interested in more education?: No Please select the resources that you would like help with: None Currently or been in a relationship where the following occur: No concerns reported THRIVE Score: 2 AUDIT C Alcohol Use Questionnaire (AUDIT-C) 1. How often do you have a drink containing alcohol?: Never 3. How often do you have six or more drinks on one occasion?: Never Total Score: 0 Score Reviewed/Action Taken: Yes DONALD-7 AMB Questionnaire DONALD-7 Date DONALD - 7 assessed: 05/26/25 Feeling nervous, anxious, or on edge: 0 = Not at all Not being able to stop or control worryin = Not at all Worrying too much about different things: 0 = Not at all Trouble relaxin = Not at all Being so restless that it is hard to sit still: 0 = Not at all Becoming easily annoyed or irritable: 0 = Not at all Feeling afraid as if something awful might happen: 0 = Not at all Total DONALD-7 score (0-4 normal; 5-9 mild; 10-14 moderate; 15-21 severe): 0 Source: Developed by Drs. Dereje Alvarado, Tania Baptiste, Junior Espinoza and colleagues, with an educational susie from [employer]. DONALD-7 Assessment Billing DONALD-7 Assessment Tool: DONALD-7 Assessment 10410 Review of Systems Narrative Review of Systems - General: No fever no chills - Neurological: No headaches no dizziness - Ear nose throat: No sore throat no hearing difficulty no ear pain - Cardiovascular: No syncope, no chest pain, no palpitations - Gastrointestinal: No nausea vomiting or diarrhea - Endocrine: No polyuria polydipsia no heat intolerance - Genitourinary: No dysuria - Skin: No new complaints Physical exam (Primary Care) Vital Signs: Last Vital Signs Pulse 66 05/26/25 10:56 BP 118/72 05/26/25 10:56 Pulse Ox 95 05/26/25 10:56 BMI result Body Mass Index 23.0 Tobacco/Smoking Status: Tobacco use Status Tobacco use date assessed 05/26/25 05/26/25 10:58 Patient Tobacco Use Status Former Tobacco user 05/26/25 10:55 Tobacco use type Cigarette 05/26/25 10:55 e-Cigarette/Vaping Use Never Used 05/26/25 10:55 PHQ-9: PHQ-9 Score PHQ-9: Total score 0 05/26/25 11:28 Depression Screening Interpretation: Negative Thrive Assessment: Date of Thrive Assessment Date Thrive assessed 05/26/25 05/26/25 10:58 Currently or been in a relationship where the following occur: No concerns reported Narrative Diagnostic results - Blood pressure: 118/72 mmHg. - Labs: Last complete blood count (CBC) and metabolic profile were done in March of last year and were reportedly okay. Physical Exam General: Cooperative, healthy appearing, comfortable, no acute distress Orientation: Patient oriented x3 Head: Normal to inspection Ears: Within normal limit visually Nose: Normal external nose present Face and sinus: Sinus congestion noted, advised saline rinse Eyes: Appearance normal, extraocular movement intact pupils reactive Neck: Normal visual inspection and supple Respiratory: Normal respiratory effort and able to speak in complete sentences. Clear to auscultation, no stridor Cardiovascular: S1 and S2 RRR GI: Normal to inspection. Soft to palpation and nontender Skin: Turgor normal, no acute findings Neuro: Patient oriented x3, motor sensory intact, balance intact, tandem pass Extremities: Right leg with bruising, improving, no fracture noted, mild discomfort over echymosis, knee with full ROM and ankle mobile . Immunizations Boostrix Tdap 2.5 Lf unit-8 mcg-5 Lf/0.5 mL intramuscular syringe Performing Provider: Keny Alves MD [place] [facility] [facility] Administered by: Neena Anton MA on 05/26/25 11:28 Dose Route Admin Location Dispensed Lot Number Expiration Date [facility] Press Operator [employer] 0.5 mL IM Left Deltoid 0.5 mL [id number] 11/25/27 [id number] [employer] Total Dispensed Waste 0.5 mL 0 % VIS Given Date VIS Provided VIS Publication Date 05/26/25 Single Vaccine 21 Eligibility Eligibility Date Funding Source Not [facility] Eligible 05/26/25 Private Coding Level of Care Code Est Pt Level 3 (32396) Est Pt Prev Care >65y(73945) Diagnoses Encounter for general adult medical examination with abnormal findings Z00.01 Hypertension, essential I10 COPD, severe J44.9 Coronary artery disease due to calcified coronary lesion I25.10; I25.84 Coronary Disease-Associated Artery/Lesion type: due to calcified coronary lesion Impaired fasting blood sugar R73.01 Additional Codes DONALD-7 Assessment Billing - DONALD-7 Assessment Tool: DONALD-7 Assessment 92631 ([id number]) PHQ-9 - 68625 - PHQ-9 Billing: Yes ([id number]) Assessment & Plan Assessment & Plan (1) Encounter for general adult medical examination with abnormal findings: Code(s): Z00.01 - Encounter for general adult medical examination with abnormal findings Category: Medical (2) Hypertension, essential: Code(s): I10 - Essential (primary) hypertension Category: Medical (3) COPD, severe: Comment: COPD IS ACTUALLY VERY SEVERE, FORTUNATELY SHE IS STAYING VERY STABLE. NO INFECTION OR EXACERBATIONS IN THE LAST 6 MONTHS. Code(s): J44.9 - Chronic obstructive pulmonary disease, unspecified Category: Medical (4) CAD (coronary artery disease): Code(s): I25.10 - Atherosclerotic heart disease of [place] coronary artery without angina pectoris Category: Medical Qualifiers: Coronary Disease-Associated Artery/Lesion type: due to calcified coronary lesion Qualified Code(s): I25.10 - Atherosclerotic heart disease of [place] coronary artery without angina pectoris; I25.84 - Coronary atherosclerosis due to calcified coronary lesion (5) Impaired fasting blood sugar: Code(s): R73.01 - Impaired fasting glucose Category: Medical Plan Patient Instructions - Reduce your atenolol dose from 75 mg to 50 mg per day and monitor your blood pressure at home. - You will receive a tetanus shot today before you leave. - Proceed to the lab for blood work after your visit today. - Keep your home floor clear of potential hazards like cords to prevent falls. - For sinus issues, you can try saline nasal spray otc - Follow up in six months for a blood pressure check and in one year for your next physical exam. - If you fall again seek medical attention sooner Orders: Orders LDL Cholesterol Direct Today I10 - Essential (primary) hypertension, I25.10 - Atherosclerotic heart disease of [place] coronary artery without angina pectoris, I25.84 - Coronary atherosclerosis due to calcified coronary lesion, J44.9 - Chronic obstructive pulmonary disease, unspecified, R73.01 - Impaired fasting glucose, Z00.01 - Encounter for general adult medical examination with abnormal findings TDaP Immunization Today Z23 - Encounter for immunization Complete Blood Count Auto Diff Today I10 - Essential (primary) hypertension, I25.10 - Atherosclerotic heart disease of [place] coronary artery without angina pectoris, I25.84 - Coronary atherosclerosis due to calcified coronary lesion, J44.9 - Chronic obstructive pulmonary disease, unspecified, R73.01 - Impaired fasting glucose, Z00.01 - Encounter for general adult medical examination with abnormal findings Comprehensive Met. Panel Today I10 - Essential (primary) hypertension, I25.10 - Atherosclerotic heart disease of [place] coronary artery without angina pectoris, I25.84 - Coronary atherosclerosis due to calcified coronary lesion, J44.9 - C hronic obstructive pulmonary disease, unspecified, R73.01 - Impaired fasting glucose, Z00.01 - Encounter for general adult medical examination with abnormal findings TSH reflex Free T4 Today I10 - Essential (primary) hypertension, I25.10 - Atherosclerotic heart disease of [place] coronary artery without angina pectoris, I25.84 - Coronary atherosclerosis due to calcified coronary lesion, J44.9 - Chronic obstructive pulmonary disease, unspecified, R73.01 - Impaired fasting glucose, Z00.01 - Encounter for general adult medical examination with abnormal findings Vitamin D 25-OH (D2 and D3) Today I10 - Essential (primary) hypertension, I25.10 - Atherosclerotic heart disease of [place] coronary artery without angina pectoris, I25.84 - Coronary atherosclerosis due to calcified coronary lesion, J44.9 - Chronic obstructive pulmonary disease, unspecified, R73.01 - Impaired fasting glucose, Z00.01 - Encounter for general adult medical examination with abnormal findings Hemoglobin A1c Today R73.01 - Impaired fasting glucose Medications: Changed From atenolol 75 mg (1.5 x 50 mg) PO DAILY 30 days 45 tabs 0RF To atenolol 50 mg PO DAILY 90 tabs 0RF 90 days
[2025-05-26 10:56] VITALS: BP 118/72; PULSE 66; O2SAT 95; BMI 23.0
== END 2025-05-26 11:42 | disposition home or self-care (01) ==
LOC: HO.HMCC 10:53
PROVIDERS: PCP Internal Medicine; Visit Provider Internal Medicine
DX: Z00.01 Encounter for general adult medical examination with abnormal findings (principal); J44.9 Chronic obstructive pulmonary disease, unspecified; I10 Essential (primary) hypertension; I25.10 Atherosclerotic heart disease of native coronary artery without angina pectoris; I25.84 Coronary atherosclerosis due to calcified coronary lesion; R73.01 Impaired fasting glucose; Z23 Encounter for immunization